=== PATIENT | female | born 1930 | race Caucasian/White ===

== ENCOUNTER 2017-05-30 05:34 | Inpatient (IN) | payer MEDICARE, OTHER ==
[2017-05-30] MEDS ORDERED: SODIUM CHLORIDE 0.9% 1,000 ML IV STA (05:41)
[2017-05-30] MEDS ORDERED: SODIUM CHLORIDE 0.9% 500 ML IV STA (05:41)
[2017-05-30] MEDS ORDERED: LORazepam 2 MG/ML INJ IV STA (05:56)
--- NOTE | 2017-05-30 06:13 | ED ---
General Adult HPI - General Chief complaint: Weakness Stated complaint: Weakness Time Seen by Provider: 05/30/17 05:38 Source: EMS, RN notes reviewed, old records reviewed Mode of arrival: EMS Limitations: no limitations - History of Present Illness Initial comments: This is an 86-year-old female to the ER for evaluation of weakness and lethargy. Patient called EMS the patient's house this patient was not feeling well. Patient has history of high blood pressure diabetes multiple surgeries. Patient is a poor historian at this time, she cannot explain how she feels she states she is just feels like she can't catch her breath and she feels weak. Patient denies pain, denies any other icomplaints - Related Data Home Medications Medication Instructions Recorded Confirmed Alendronate Sodium [Fosamax] 70 mg PO WEEKLY 08/05/15 09/10/15 Atenolol [Tenormin] 25 mg PO DAILY 08/05/15 09/10/15 Calcium/Magnesium/Zinc 1 each PO DAILY 08/05/15 09/10/15 [Rgbykcf-Jenubqyfb-Ownk Tablet] Glucosam/Antelmo-Msm1/C/Kam/Bosw 1 each PO DAILY 08/05/15 09/10/15 [Glucosamine-Chondroitin Tablet] Levothyroxine Sodium [Synthroid] 88 mcg PO DAILY 08/05/15 09/10/15 Losartan [Cozaar] 50 mg PO DAILY 08/05/15 09/10/15 Gilberts-3 Fatty Acids/Fish Oil [Fish 1 each PO DAILY 08/05/15 09/10/15 Oil 1,000 mg Softgel] Simvastatin [Zocor] 20 mg PO HS 08/05/15 09/10/15 Warfarin [Coumadin] 2.5 mg PO MOTUWEFRSA 08/05/15 09/10/15 Warfarin [Coumadin] 5 mg PO SUTH 08/05/15 09/10/15 cloNIDine HCL [Catapres] 0.1 mg PO HS 08/05/15 09/10/15 Allergies Allergy/AdvReac Type Severity Reaction Status Date / Time corn Allergy Unknown Cough Verified 05/30/17 05:43 milk Allergy Unknown Cough Verified 05/30/17 05:43 peanut Allergy Unknown Cough Verified 05/30/17 05:43 soybean Allergy Unknown Cough Verified 05/30/17 05:43 Sulfa (Sulfonamide Allergy Unknown Rash/Hives Verified 05/30/17 05:43 Antibiotics) tomato Allergy Unknown Cough Verified 05/30/17 05:43 wheat Allergy Unknown Cough Verified 05/30/17 05:43 Review of Systems ROS Statement: Those systems with pertinent positive or pertinent negative responses have been documented in the HPI. ROS Other: All systems not noted in ROS Statement are negative. Past Medical History Past Medical History: Deep Vein Thrombosis (DVT), Hypertension, Osteoarthritis ( OA), Pulmonary Embolus (PE), Thyroid Disorder Additional Past Medical History / Comment(s): "PRE-DIABETIC", PACEMAKER, diverticulitis History of Any Multi-Drug Resistant Organisms: None Reported Past Surgical History: Appendectomy, Cholecystectomy, Hysterectomy, Pacemaker, Tonsillectomy Additional Past Surgical History / Comment(s): rt eye cataract Past Anesthesia/Blood Transfusion Reactions: Motion Sickness Type of Cardiac Device: Permanent Pacemaker Device Placement Date:: ?2003 Past Psychological History: No Psychological Hx Reported Smoking Status: Never smoker Past Alcohol Use History: None Reported Past Drug Use History: None Reported - Past Family History Sister(s) Family Medical History: Cancer Mother Family Medical History: Cancer General Exam Limitations: no limitations General appearance: alert, in no apparent distress Head exam: Present: atraumatic, normocephalic, normal inspection Eye exam: Present: normal appearance, PERRL, EOMI. Absent: scleral icterus, conjunctival injection, nystagmus, periorbital swelling ENT exam: Present: normal exam, mucous membranes moist Neck exam: Present: normal inspection. Absent: tenderness, meningismus, lymphadenopathy Respiratory exam: Present: normal lung sounds bilaterally. Absent: respiratory distress, wheezes, rales, rhonchi, stridor Cardiovascular Exam: Present: regular rate, normal rhythm, normal heart sounds. Absent: systolic murmur, diastolic murmur, rubs, gallop, clicks GI/Abdominal exam: Present: soft, normal bowel sounds. Absent: distended, tenderness, guarding, rebound, rigid Extremities exam: Present: normal inspection, full ROM, normal capillary refill. Absent: tenderness, pedal edema, joint swelling, calf tenderness Back exam: Present: normal inspection Neurological exam: Present: alert, oriented X3, CN II-XII intact Psychiatric exam: Present: normal affect, normal mood Skin exam: Present: warm, dry, intact, normal color. Absent: rash Course Vital Signs 05/30/17 05/30/17 05:35 07:18 Temperature 97.8 F Pulse Rate 77 69 Respiratory 18 17 Rate Blood Pressure 193/88 201/86 O2 Sat by Pulse 100 98 Oximetry - Reevaluation(s) Reevaluation #1: 05/30/17 07:41 Patient was stood up to use the commode, unable to stand on her feet, significantly dizzy, room spinning Reevaluation #2: 05/30/17 07:42 Speaking with family states the difficulty with ambulation and dizziness is patient's main problem as well as some occasional confusion EKG Findings - EKG Comments: EKG Findings:: EKG shows normal sinus rhythm rate of 67, pO2 04, QRS 92, QTc 452 Medical Decision Making - Medical Decision Making 86 female to ER for evaluation. Patient is altered mental status, inaccurate historian, very dizzy and unsteady on her feet with ataxia. Patient be admitted for neurological evaluation regarding ataxia, vertigo is possible effects of stroke - Lab Data Result diagrams: 05/30/17 06:27 Lab Results 05/30/17 05/30/17 05/30/17 Range/Units 06:27 06:27 06:27 WBC 3.4 L (3.8-10.6) k/uL RBC 4.41 (3.80-5.40) m/uL Hgb 14.5 (11.4-16.0) gm/dL Hct 43.5 (34.0-46.0) % MCV 98.6 (80.0-100.0) fL MCH 32.9 (25.0-35.0) pg MCHC 33.4 (31.0-37.0) g/dL RDW 12.5 (11.5-15.5) % Plt Count 183 (150-450) k/uL Neutrophils % 57 % Lymphocytes % 30 % Monocytes % 6 % Eosinophils % 3 % Basophils % 1 % Neutrophils # 1.9 (1.3-7.7) k/uL Lymphocytes # 1.0 (1.0-4.8) k/uL Monocytes # 0.2 (0-1.0) k/uL Eosinophils # 0.1 (0-0.7) k/uL Basophils # 0.0 (0-0.2) k/uL PT (9.0-12.0) sec INR (<1.2) APTT (22.0-30.0) sec Plasma Lactic Acid Jignesh 2.4 H* (0.7-2.0) mmol/L Total Creatine Kinase 131 (30-135) U/L CK-MB (CK-2) 0.9 (0.0-2.4) ng/mL CK-MB (CK-2) Rel Index 0.7 Troponin I <0.012 (0.000-0.034) ng/mL 05/30/17 Range/Units 06:27 WBC (3.8-10.6) k/uL RBC (3.80-5.40) m/uL Hgb (11.4-16.0) gm/dL Hct (34.0-46.0) % MCV (80.0-100.0) fL MCH (25.0-35.0) pg MCHC (31.0-37.0) g/dL RDW (11.5-15.5) % Plt Count (150-450) k/uL Neutrophils % % Lymphocytes % % Monocytes % % Eosinophils % % Basophils % % Neutrophils # (1.3-7.7) k/uL Lymphocytes # (1.0-4.8) k/uL Monocytes # (0-1.0) k/uL Eosinophils # (0-0.7) k/uL Basophils # (0-0.2) k/uL PT 20.7 H (9.0-12.0) sec INR 2.3 H (<1.2) APTT 31.4 H (22.0-30.0) sec Plasma Lactic Acid Jignesh (0.7-2.0) mmol/L Total Creatine Kinase (30-135) U/L CK-MB (CK-2) (0.0-2.4) ng/mL CK-MB (CK-2) Rel Index Troponin I (0.000-0.034) ng/mL - Radiology Data Radiology results: report reviewed (CT brain is negative), image reviewed Disposition Clinical Impression: CVA (cerebral vascular accident), Vertigo, Ataxia Disposition: ADMITTED IP TO THIS [facility] Condition: Fair Referrals: Angie Khalil DO [Primary Care Provider] - 1-2 days
[2017-05-30 06:34] LABS: Basophils % (A) 1 %; Eosinophils # (A) 0.1 k/uL (0-0.7); Eosinophils % (A) 3 %; HCT 43.5 % (34.0-46.0); HGB 14.5 gm/dL (11.4-16.0); Lymphocytes % (A) 30 %; MCH 32.9 pg (25.0-35.0); MCHC 33.4 g/dL (31.0-37.0); MCV 98.6 fL (80.0-100.0); Mean Platelet Volume 7.4; Monocytes # (A) 0.2 k/uL (0-1.0); Monocytes % (A) 6 %; Neutrophils # (A) 1.9 k/uL (1.3-7.7); Neutrophils % (A) 57 %; Platelet Count 183 k/uL (150-450); RBC 4.41 m/uL (3.80-5.40); RDW 12.5 % (11.5-15.5); WBC 3.4 k/uL (3.8-10.6)
[2017-05-30 06:49] LABS: INR 2.3 (<1.2); Partial Thromboplastin Time 31.4 sec (22.0-30.0); Prothrombin Time 20.7 sec (9.0-12.0)
[2017-05-30 07:08] LABS: Creatine Kinase 131 U/L (30-135)
[2017-05-30 07:21] LABS: Creatine Kinase MB 0.9 ng/mL (0.0-2.4); Troponin I <0.012 ng/mL (0.000-0.034)
[2017-05-30] MEDS ORDERED: ASPIRIN 325 MG TAB PO STA (07:38)
[2017-05-30] MEDS ORDERED: DIAZEPAM 5 MG/ML 2 ML INJ IVP STA (07:40)
[2017-05-30] MEDS ORDERED: ONDANSETRON 4 MG/2 ML VIAL IVP STA (07:40)
[2017-05-30] MEDS ORDERED: ONDANSETRON 4 MG/2 ML VIAL IVP PRN (07:40)
[2017-05-30 07:50] LABS: Appearance,Urine Clear (Clear); Bilirubin,Urine Negative (Negative); Blood,Urine Negative (Negative); Color,Urine Light Yellow; Glucose,Urine (UA) Negative (Negative); Ketones,Urine Negative (Negative); Leukocyte Esterase,Urine Negative (Negative); Nitrite,Urine Negative (Negative); PH, Urine 7.5 (5.0-8.0); Protein,Urine Negative (Negative); Specific Gravity,Urine 1.005 (1.001-1.035); Urobilinogen,Urine <2.0 mg/dL (<2.0)
[2017-05-30] MEDS ORDERED: LABETALOL 5 MG/ML VIAL MDV IVP STA (07:57)
[2017-05-30 07:59] LABS: ALT 48 U/L (9-52); AST 42 U/L (14-36); Albumin 4.5 g/dL (3.5-5.0); Alkaline Phosphatase 54 U/L (38-126); Anion Gap 13 mmol/L; Blood Urea Nitrogen 10 mg/dL (7-17); Calcium 9.6 mg/dL (8.4-10.2); Carbon Dioxide 22 mmol/L (22-30); Chloride 94 mmol/L (98-107); Glucose 166 mg/dL (74-99); Magnesium 1.7 mg/dL (1.6-2.3); Phosphorus 2.5 mg/dL (2.5-4.5); Potassium 4.5 mmol/L (3.5-5.1); Sodium 129 mmol/L (137-145); Total Bilirubin 1.6 mg/dL (0.2-1.3); Total Protein 7.8 g/dL (6.3-8.2)
--- NOTE | 2017-05-30 08:06 | CT ---
EXAMINATION TYPE: CT brain wo con DATE OF EXAM: 05/30/2017 COMPARISON: NONE HISTORY: generalized weakness CT DLP: 945.5 mGycm Automated exposure control for dose reduction was used. FINDINGS: There is diffuse periventricular white matter lucency, compatible with chronic ischemic change. Central structures are midline. There is no evidence of hydrocephalus. No acute focal lesion, mass ef fect or midline shift is seen. I do not see evidence of intracranial blood. Visualized portions of the paranasal sinuses and mastoids are clear. There is evidence of hyperostosi s frontalis internus. IMPRESSION: 1. NO ACUTE INTRACRANIAL ABNORMALITY. 2. CHRONIC WHITE MATTER ISCHEMIC CHANGE.
--- NOTE | 2017-05-30 09:05 | US ---
EXAMINATION TYPE: US carotid duplex BILAT DATE OF EXAM: 05/30/2017 COMPARISON: NONE CLINICAL HISTORY: Stenosis. Lethargic, weakness, high BP EXAM MEASUREMENTS: RIGHT: Peak Systolic Velocity (PSV) cm/sec ----- Right CCA: 63.6 ----- Right ICA: 56.6 ----- Right ECA: 84.5 ICA/CCA ratio: 0.9 RIGHT: End Diastole cm/sec ----- Right CCA: 10.4 ----- Right ICA: 13.0 ----- Right ECA: 4.3 LEFT: Peak Systolic Velocity (PSV) cm/sec ----- Left CCA: 55.7 ----- Left ICA: 81.2 ----- Left ECA: 56.6 ICA/CCA ratio: 1.5 LEFT: End Diastole cm/sec ----- Left CCA: 9.5 ----- Left ICA: 15.3 ----- Left ECA: 0.0 VERTEBRALS (direction of flow): Right Vertebral: Antegrade Left Vertebral: Antegrade Rhythm: Normal No elevated velocities or significant stenosis. Bilateral wall thickening. Plaque seen in right bulb. IMPRESSION: I DO NOT SEE EVIDENCE OF A HEMODYNAMICALLY SIGNIFICANT STENOSIS IN EITHER CAROTID SYSTEM. Criteria for Assigning % of Stenosis / Diameter reduction (Estimation based on the indirect measurements of the internal carotid artery velocities (ICA PSV). 1. Normal (no stenosis)=ICA PSV < 125 cm/s: ratio < 2.0: ICA EDV<40 cm/s. 2. Less than 50% stenosis=ICA PSV < 125 cm/s: ratio < 2.0: ICA EDV<40 cm/s. 3. 50 to 69% stenosis=ICA PSV of 125 to 230 cm/s: ration 2.0 ? 4.0: ICA EDV 40-100 cm/s. 4. Greater than 70% stenosis to near occlusion= ICA PSV > 230 cm/s: ratio > 4.0: ICA EDV > 100 cm/s. 5. Near occlusion= ICA PSV velocities may be low or undetectable: variable ratio and ICA EDV. 6. Total occlusion=unable to detect flow.
[2017-05-30 12:52] VITALS: RESP 18
[2017-05-30] MEDS ORDERED: DICYCLOMINE 20 MG TAB PO PRN (15:01)
[2017-05-30] MEDS ORDERED: cloNIDine HCL 0.1 MG TAB PO PRN (15:08)
[2017-05-30] MEDS ORDERED: hydrALAZINE HCL 20 MG/ML 1 ML VIAL IVP PRN (15:08)
--- NOTE | 2017-05-30 15:30 | XR ---
EXAMINATION TYPE: XR chest 1V portable DATE OF EXAM: 05/30/2017 CLINICAL HISTORY: Difficulty breathing and CHF. TECHNIQUE: Single AP portable upright view of the chest is obtained. COMPARISON: Chest x-ray from August 11, 2015 FINDINGS: There is no suspicious new focal airspace opacity, pleural effusion, or new pneumothorax s een bilaterally. There is persistent left basilar linear scarring and/or atelectasis. Cardiac silhoue tte size is stable and upper limits of normal with dual lead pacemaker redemonstrated. Osseous struct ures are intact. IMPRESSION: No acute pulmonary process. No significant change from prior.
--- NOTE | 2017-05-30 15:42 | HP ---
HISTORY AND PHYSICAL DATE OF SERVICE: 05/30/2017 CHIEF COMPLAINT: Weakness and as well as dizziness. HISTORY OF PRESENT ILLNESS: This 86-year-old woman with past medical history of multiple medical problems including DVT, hypertension, DJD, history of pulmonary embolism being followed by Dr. Restrepo in the outpatient setting yesterday workup with significant headache of the both temporal areas. Subsequently patient was feeling dizzy. Patient had feeling of vertigo and generalized weakness. The patient came to [facility] and was admitted for further evaluation and treatment. CT scan of the brain was done which showed no active abnormality. Chronic white matter skin changes noted. There is no history of fever, rigors or chills. No history of headache, loss of consciousness or chills. The patient also had difficulty walking also. PAST MEDICAL HISTORY: History of DVT, hypertension, DJD, pulmonary embolism, hypothyroidism, history of pacemaker, diverticulitis. MEDICATIONS: Prior to admission: 1. Catapres 0.1 q.h.s. 2. Coumadin 5 mg Wednesday, Wednesday and 2.5 mg on Wednesday, Wednesday, Wednesday, and Wednesday. 3. Zocor 20 mg q.h.s. 4. Cozaar 50 mg b.i.d. 5. Synthroid 18 mcg p.o. q.h.s. 6. Bentyl 20 mg p.o. t.i.d. p.r.n. 7. Tenormin 25 mg p.o. daily. 8. Fosamax 70 mg p.o. . ALLERGIES: CORN, MILK, PEANUTS, SOY LIVE, SULFA, TOMATO, WHEAT. FAMILY HISTORY: History of cancer in the family. SOCIAL HISTORY: No history of smoking. Occasional alcohol intake. REVIEW OF SYSTEMS: ENT: As mentioned earlier. Cardiovascular: No angina or palpitations. Respiratory: As mentioned earlier. GI no nausea or vomiting. : No dysuria. NERVOUS SYSTEM: As mentioned earlier. Allergy/Immunology: No asthma or hayfever. Musculoskeletal as mentioned earlier. Hematology/Oncology: No history of anemia. Endocrine: As mentioned earlier. Constitutional: As mentioned earlier. Dermatology: Negative. Rheumatology: Negative. Psychiatric: As mentioned earlier. PHYSICAL EXAMINATION: Alert, oriented x3. Blood pressure 160/70, respiratory rate 18, temperature 98.9, pulse ox 98% on 2 L. HEENT: Conjunctivae normal. Oral mucosa moist. Neck is no jugular venous distention. No carotid bruit. No lymph node enlargement. Cardiovascular: S1, S2 muffled. Respiratory: Breath sounds diminished in the bases. No rhonchi and no crackles. ABDOMEN: Soft, obese, nontender. No mass palpable. Legs: No edema and no swelling. NERVOUS SYSTEM: Higher functions as mentioned. Cranial nerves 2nd thru 12 grossly intact. No nystagmus or diplopia. Otherwise some minimal diffuse weakness present otherwise no sensory abnormalities. Mild bilateral incoordination of the hand and as well as the gait dysfunction present, right more than the left. SKIN: No ulcer, rash or bleeding. Lymphatics: No lymph nodes palpable in the neck, axillae or groin. Joints no active deforming arthropathy. LABS: WBC 3.4, INR is 2.3, sodium 139, 2.4 and 2. ASSESSMENT: 1. Dizziness and weakness possibly vertebrobasilar transient ischemic attack or stroke. 2. Gait dysfunction. 3. Hyponatremia. 4. History of deep vein thrombosis. 5. Hypertension. 6. History of degenerative joint disease. 7. History of pulmonary embolism. 8. History of hypothyroidism. 9. History of prediabetes. 10.Cholecystectomy. 11.History of pacemaker. RECOMMENDATIONS AND DISCUSSION: This 86-year-old woman who presented with multiple complex medical issues, we will monitor the patient closely continue the current management and continue symptomatic treatment. Continue repeat and as well as Ecotrin. Neurovascular workup. Neurology consultation. Neuro checks. Also recommend MRI if possible. Otherwise prognosis guarded. hypertension. Discussed with the family at length. Understands and agrees. Further recommendations to follow. Copy of dictation being forwarded to Dr. Restrepo who is the primary physician. MMODL / IJN: [id number] / MTDMatheus
[2017-05-30] MEDS: ATENOLOL 25 MG TAB PO SCH (16:06)
[2017-05-30] MEDS: SODIUM CHLORIDE 0.9% 1,000 ML IV SCH (16:07)
--- NOTE | 2017-05-30 17:06 | P.CNNES ---
History of Present Illness Consult date: 05/30/17 Reason for Consult: Patient with dizziness and ataxia admitted for possible VBI vs. stroke. History of Present Illness: This patient is a 86-year-old right-handed white female with an extensive medical history of multiple medical problems including hypertension, pulmonary embolism, DVT, and possible TIA. Patient apparently was at home and developed symptoms of significant headache mostly involving the bitemporal area. She apparently was feeling very weak after this episode. She tried to get up and ambulate and felt slight symptoms of lightheadedness. She describes this as dizziness. She did not actually experience any true vertigo symptoms but felt lightheaded. She apparently sat down and the symptoms did improve after some time. She complained of generalized weakness at this time but did not have any actual passing out spells. Apparently she was more weak and lethargic and for this reason EMS was called to the home. Her daughter is at bedside and states that she normally gets around and does things on her own independently without difficulty. For this reason she was brought into the emergency room and was seen in the ER at [facility] yesterday by Dr. Villagran. She was sent for a computed tomography scan of the brain for further evaluation. CAT scan revealed no acute intracranial abnormality. Chronic white matter ischemic changes were noted. She was at school he admitted to the hospital. She does have a history of pacemaker placement and is being followed in the cardiology clinic with Dr. Segura. Apparently her current pacemaker is over 7 years old and has not had any recent difficulties with this. She does follow with the tool supervisor yearly. Patient denies any previous history of syncope or seizures. She did have some difficulty with shortness of breath and mild pedal edema but this has been present for some time. Patient states she takes Coumadin on a regular basis. Her INR on admission was 2.3. She is being treated for hypertension as well and takes atenolol at home. The patient states that she was up and ambulating in her room earlier this morning and felt well but did not have any weakness or unsteadiness. She denied any episodes of perioral numbness, dizziness, or diplopia. She has been up and sitting up on the side of the bed and feels better this morning. She did have evidence of mild hyponatremia on admission. She describes her difficulties with walking yesterday as mostly a sense of lightheadedness. She denies any gait ataxia this morning and states she was able to ambulate to the bathroom without any difficulties. The patient's clinical symptoms suggest possibility of vertebrobasilar insufficiency. She was admitted to hospital for a full stroke evaluation. As noted she is currently on Coumadin and her INR today is 2.3. Neurology is now been consulted for further evaluation and recommendations. Review of Systems Constitutional: Denies chills, Denies fever Eyes: denies blurred vision, denies pain Ears, nose, mouth and throat: Denies headache, Denies sore throat Cardiovascular: Denies chest pain, Denies shortness of breath Respiratory: Denies cough Gastrointestinal: Denies abdominal pain, Denies diarrhea, Denies nausea, Denies vomiting Genitourinary: Denies dysuria, Denies hematuria Musculoskeletal: Denies myalgias Integumentary: Denies pruritus, Denies rash Neurological: Reports balance difficulties, Reports headaches, Reports lack of coordination, Denies numbness, Denies weakness Psychiatric: Denies anxiety, Denies depression Endocrine: Denies fatigue, Denies weight change Past Medical History Past Medical History: Deep Vein Thrombosis (DVT), Hypertension, Osteoarthritis ( OA), Pulmonary Embolus (PE), Thyroid Disorder Additional Past Medical History / Comment(s): "PRE-DIABETIC", PACEMAKER, diverticulitis History of Any Multi-Drug Resistant Organisms: None Reported Past Surgical History: Appendectomy, Cholecystectomy, Hysterectomy, Pacemaker, Tonsillectomy Additional Past Surgical History / Comment(s): rt eye cataract Past Anesthesia/Blood Transfusion Reactions: Motion Sickness Type of Cardiac Device: Permanent Pacemaker Device Placement Date:: ?2003 Past Psychological History: No Psychological Hx Reported Smoking Status: Never smoker Past Alcohol Use History: None Reported Past Drug Use History: None Reported - Past Family History Sister(s) Family Medical History: Cancer Mother Family Medical History: Cancer Medications and Allergies Home Medications Medication Instructions Recorded Confirmed Type Alendronate Sodium [Fosamax] 70 mg PO 08/05/15 05/30/17 History Atenolol [Tenormin] 25 mg PO DAILY 08/05/15 05/30/17 History Levothyroxine Sodium [Synthroid] 88 mcg PO 08/05/15 05/30/17 History Losartan [Cozaar] 50 mg PO DAILY 08/05/15 05/30/17 History Simvastatin [Zocor] 20 mg PO HS 08/05/15 05/30/17 History Warfarin [Coumadin] 2.5 mg PO SUTUWETHSA 08/05/15 05/30/17 History Warfarin [Coumadin] 5 mg PO MOFR 08/05/15 05/30/17 History cloNIDine HCL [Catapres] 0.1 mg PO HS 08/05/15 05/30/17 History Dicyclomine [Bentyl] 20 mg PO TID PRN 05/30/17 05/30/17 History Allergies Allergy/AdvReac Type Severity Reaction Status Date / Time corn Allergy Unknown Cough Verified 05/30/17 08:51 milk Allergy Unknown Cough Verified 05/30/17 08:51 peanut Allergy Unknown Cough Verified 05/30/17 08:51 soybean Allergy Unknown Cough Verified 05/30/17 08:51 Sulfa (Sulfonamide Allergy Unknown Rash/Hives Verified 05/30/17 08:51 Antibiotics) tomato Allergy Unknown Cough Verified 05/30/17 08:51 wheat Allergy Unknown Cough Verified 05/30/17 08:51 Physical Examination - Vital Signs Vital Signs: Vital Signs Temp Pulse Pulse Resp BP BP BP 05/30/17 13:52 99.1 F 77 18 210/91 05/30/17 12:38 71 18 165/75 05/30/17 10:39 72 17 167/71 05/30/17 09:39 73 17 154/67 05/30/17 08:39 68 16 154/67 05/30/17 08:20 74 17 202/84 05/30/17 07:18 69 17 201/86 05/30/17 05:35 97.8 F 77 18 193/88 Pulse Ox 05/30/17 13:52 97 05/30/17 12:38 98 05/30/17 10:39 99 05/30/17 09:39 05/30/17 08:39 05/30/17 08:20 95 05/30/17 07:18 98 05/30/17 05:35 100 Intake and Output 05/29/17 05/30/17 05/30/17 22:59 06:59 14:59 Other: Weight 74.616 kg 74.6 kg Patient Weight 05/31/17 06:59 Weight 74.6 kg - Constitutional General appearance: average body habitus, cooperative - EENT EENT: PERRL, mucous membranes moist - Respiratory Respiratory: lungs clear, normal breath sounds - Cardiovascular Cardiovascular: regular rate, normal S1, normal S2 Extremities: no peripheral edema bilaterally - Gastrointestinal Gastrointestinal: normoactive bowel sounds - Integumentary Integumentary: normal - Neurologic Cranial nerve examination: PERRL, EOMI, VFF, V1/V2/V3 grossly intact, face symmetric, tongue midline, intact gag reflex, intact corneal reflex, normal palatal elevation Speech examination: intact Sensorimotor examination: intact Motor examination - right side: 4/5: biceps, triceps, wrist flexion, wrist extension, cashier courtesy booth, hip flexors, knee extensors, dorsiflexion, toe extension (EHL) , plantarflexion Motor examination - left side: 4/5: biceps, triceps, wrist flexion, wrist extension, cashier courtesy booth, hip flexors, knee extensors, dorsiflexion, toe extension (EHL) , plantarflexion Detailed sensory examination: intact Reflex and gait examination: intact Reflexes: 1+: ankle, bicep, knee, tricep - Musculoskeletal Musculoskeletal: no pain - Psychiatric Psychiatric: mood/affect appropriate, cooperative Results - Laboratory Findings CBC and BMP: 05/30/17 06:27 05/30/17 06:27 Abnormal Lab Findings: Abnormal Labs 05/30/17 05/30/17 05/30/17 06:27 06:27 06:27 WBC 3.4 L PT INR APTT Sodium 129 L Chloride 94 L Glucose 166 H Plasma Lactic Acid Jignesh 2.4 H* Total Bilirubin 1.6 H AST 42 H 05/30/17 06:27 WBC PT 20.7 H INR 2.3 H APTT 31.4 H Sodium Chloride Glucose Plasma Lactic Acid Jignesh Total Bilirubin AST Assessment and Plan (1) Vertebrobasilar insufficiency Current Visit: Yes Status: Acute Code(s): G45.0 - VERTEBRO-BASILAR ARTERY SYNDROME SNOMED Code(s): 39122376 (2) Ataxic gait Current Visit: Yes Status: Acute Code(s): R26.0 - ATAXIC GAIT SNOMED Code( s): 27972342 (3) Near syncope Current Visit: Yes Status: Acute Code(s): R55 - SYNCOPE AND COLLAPSE SNOMED Code(s): 986829212 (4) Lightheadedness Current Visit: Yes Status: Acute Code(s): R42 - DIZZINESS AND GIDDINESS SNOMED Code(s): 939528155 Plan: This patient is a 86-year-old right-handed white female admitted to Hospital with symptoms of lightheadedness and weakness. Patient was complaining of dizziness and headache. She was brought into the emergency room where she was evaluated in the ER by Dr. Villagran. She underwent a computed tomography scan of the brain which was negative for any evidence of acute stroke or hemorrhage. There is chronic white matter ischemic changes noted. Patient was admitted to Hospital. Her neurological examination at this time is nonfocal. She does have a history of pacemaker placement as well as DVT in the past and pulmonary embolism. She is on Coumadin for long-term anticoagulation. Her INR in the ER was therapeutic at 2.3. Patient had episode of dizziness and bitemporal headache which has resolved. She complains of symptoms of lightheadedness as her symptoms of dizziness. She denied any true vertigo. She is doing much better this morning and has been up in her room and walking without much symptoms. Her clinical history suggests possibility of vertebrobasilar insufficiency. She is already currently on Coumadin and should maintain her INR between 2-3. We would recommend a repeat computed tomography scan of the brain tomorrow to rule out any acute changes. She is unable to go for MRI of the brain that she has a pacemaker. Carotid Doppler ultrasound was reviewed and is negative for any evidence of carotid artery stenosis. We'll await the repeat computed tomography scan results tomorrow. Would continue monitoring her INR closely. Would increase activity as she tolerates. Overall she seems to be doing much better today. We will continue to follow her progress closely during this admission. Overall prognosis at this time remains guarded. Time with Patient: Greater than 30
[2017-05-30] MEDS: HEPARIN SODIUM,PORCINE 5,000 UNIT/ML 1 ML VIAL SQ SCH (20:30)
[2017-05-30] MEDS ORDERED: ATORVASTATIN 80 MG TAB PO SCH (21:00)
[2017-05-30] MEDS ORDERED: cloNIDine HCL 0.1 MG TAB PO SCH (21:00)
[2017-05-30] MEDS ORDERED: LEVOTHYROXINE 88 MCG TAB PO SCH (21:00)
[2017-05-30] MEDS ORDERED: DOCUSATE 100 MG CAP PO PRN (22:34)
[2017-05-31 06:32] LABS: Basophils % (A) 1 %; Eosinophils # (A) 0.1 k/uL (0-0.7); Eosinophils % (A) 3 %; HCT 37.7 % (34.0-46.0); Lymphocytes # (A) 1.1 k/uL (1.0-4.8); Lymphocytes % (A) 22 %; MCH 31.7 pg (25.0-35.0); MCHC 31.9 g/dL (31.0-37.0); MCV 99.3 fL (80.0-100.0); Mean Platelet Volume 8.2; Monocytes # (A) 0.3 k/uL (0-1.0); Monocytes % (A) 6 %; Neutrophils # (A) 3.2 k/uL (1.3-7.7); Neutrophils % (A) 67 %; Platelet Count 189 k/uL (150-450); RDW 13.4 % (11.5-15.5); WBC 4.8 k/uL (3.8-10.6)
[2017-05-31 06:39] LABS: INR 2.4 (<1.2); Prothrombin Time 21.9 sec (9.0-12.0)
[2017-05-31] MEDS: SODIUM CHLORIDE 0.9% 1,000 ML IV SCH (06:48)
[2017-05-31 06:50] LABS: Anion Gap 7 mmol/L; Blood Urea Nitrogen 9 mg/dL (7-17); Calcium 9.1 mg/dL (8.4-10.2); Carbon Dioxide 28 mmol/L (22-30); Chloride 95 mmol/L (98-107); Cholesterol 113 mg/dL (<200); Glucose 142 mg/dL (74-99); HDL Cholesterol 45 mg/dL (40-60); LDL Cholesterol,Calculated 38 mg/dL (0-99); Potassium 4.8 mmol/L (3.5-5.1); Sodium 130 mmol/L (137-145); Triglycerides 150 mg/dL (<150)
[2017-05-31] MEDS ORDERED: LOSARTAN 50 MG TAB PO SCH (09:00)
[2017-05-31] MEDS ORDERED: ASPIRIN 325 MG TAB PO SCH (09:00)
[2017-05-31] MEDS: ATENOLOL 25 MG TAB PO SCH (09:27)
[2017-05-31] MEDS: HEPARIN SODIUM,PORCINE 5,000 UNIT/ML 1 ML VIAL SQ SCH (09:27)
--- NOTE | 2017-05-31 09:57 | ECHOF ---
Referral Reason:Stroke MEASUREMENTS -------- HEIGHT: 157.5 cm WEIGHT: 77.6 kg BP: 151/71 RVIDd: 2.9 cm (< 3.3) IVSd: 1.3 cm (0.6 - 1.1) LVIDd: 3.5 cm (3.9 - 5.3) LVPWd: 1.3 cm (0.6 - 1.1) IVSs: 1.8 cm LVIDs: 2.3 cm LVPWs: 1.7 cm LA Diam: 3.5 cm (2.7 - 3.8) LAESV Index (A-L): 23.73 ml/m Ao Diam: 3.3 cm (2.0 - 3.7) AV Cusp: 1.1 cm (1.5 - 2.6) MV EXCURSION: 9.111 mm (> 18.000) MV EF SLOPE: 18 mm/s (70 - 150) EPSS: 0.3 cm MV E Eric: 1.04 m/s MV DecT: 398 ms MV A Eric: 1.21 m/s MV E/A Ratio: 0.85 AV maxP.89 mmHg AV meanP.74 mmHg RAP: 5.00 mmHg RVSP: 34.50 mmHg FINDINGS -------- Sinus rhythm. This was a technically good study. The left ventricular size is normal. There is mild concentric left ventricular hypertrophy. Overa ll left ventricular systolic function is normal with, an EF between 60 - 65 %. The right ventricle is normal in size. Normal LA size by volume 22+/-6 ml/m2. The right atrium is normal in size. There is moderate aortic valve sclerosis. There is moderate aortic stenosis present. Peak/mean gr adient across the Aortic Valve is 52.89mmHg / 33.74mmHg. The mitral valve leaflets are mildly thickened. Mild mitral annular calcification present. There is trace mitral regurgitation. Mild tricuspid regurgitation present. There is mild pulmonary hypertension. The right ventricular systolic pressure, as measured by Doppler, is 34.50mmHg. Trace/mild (physiologic) pulmonic regurgitation. The aortic root size is normal. Normal inferior vena cava with normal inspiratory collapse consistent with estimated right atrial pre ssure of 5 mmHg. There is no pericardial effusion. CONCLUSIONS -------- 1. Sinus rhythm. 2. This was a technically good study. 3. The left ventricular size is normal. 4. There is mild concentric left ventricular hypertrophy. 5. Overall left ventricular systolic function is normal with, an EF between 60 - 65 %. 6. The right ventricle is normal in size. 7. Normal LA size by volume 22+/-6 ml/m2. 8. The right atrium is normal in size. 9. There is moderate aortic valve sclerosis. 10. There is moderate aortic stenosis present. 11. Peak/mean gradient across the Aortic Valve is 52.89mmHg / 33.74mmHg. 12. The mitral valve leaflets are mildly thickened. 13. Mild mitral annular calcification present. 14. There is trace mitral regurgitation. 15. Mild tricuspid regurgitation present. 16. There is mild pulmonary hypertension. 17. The right ventricular systolic pressure, as measured by Doppler, is 34.50mmHg. 18. Trace/mild (physiologic) pulmonic regurgitation. 19. The aortic root size is normal. 20. Normal inferior vena cava with normal inspiratory collapse consistent with estimated right atrial pressure of 5 mmHg. 21. There is no pericardial effusion. HOT MAN: Rosa M Briceño RDCS
[2017-05-31 10:57] VITALS: PULSE 74
[2017-05-31 11:56] VITALS: BP 140/77; TEMP 97.3
--- NOTE | 2017-05-31 11:58 | CT ---
EXAMINATION TYPE: CT brain wo con DATE OF EXAM: 05/31/2017 COMPARISON: 05/30/2017 HISTORY: Dizziness with abnormal gait CT DLP: 978.20 mGycm Automated exposure control for dose reduction was used. FINDINGS: Hyperostosis of the calvarium noted. Periventricular low-attenuation is stable compatible with remote microvascular ischemia. If there is concern for acute ischemia correlate with MRI. No midline shift or mass effect. No acute intracranial hemorrhage. IMPRESSION: NO ACUTE INTRACRANIAL HEMORRHAGE. 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 IF THERE IS CONCERN FOR ACUT E ISCHEMIA CORRELATE WITH MRI.
--- NOTE | 2017-06-01 12:26 | DS ---
DISCHARGE SUMMARY DATE OF SERVICE: 05/31/17 FINAL DIAGNOSES: 1. Dizziness and vertigo, possibly acute vertebrobasilar stroke or transient ischemic attack. 2. Gait dysfunction. 3. Hyponatremia. 4. History of deep vein thrombosis. 5. Hypertension. 6. History of degenerative joint disease. 7. History of pulmonary embolism. 8. History of hypothyroidism. 9. History of cholecystectomy. 10.History of pacemaker. DISCHARGE DISPOSITION: The patient will be discharged in stable condition with guarded prognosis. HISTORY OF PRESENT ILLNESS: This 86-year-old woman with past medical history of multiple medical problems, was admitted with dizziness and vertigo, vertebrobasilar stroke was suspected but CT scan did not show any acute abnormality. MRI could not be done because of pacemaker. Neurology saw the patient. Repeat CT scan of brain was also noted. The patient improved significantly. The patient was keen on going home. The patient discharged in stable condition with guarded prognosis. PHYSICAL EXAMINATION: On exam, vital signs stable. CARDIOVASCULAR: S1, S2. Respiratory: Clear to auscultation. Abdomen soft. Nervous system: No focal deficits. DISCHARGE ADVICE AND MEDICATIONS: 1. Diet is cardiac diet. 2. Activity limited until Followup. 3. Follow up with Dr. Mitchell Morrow as advised. 4. Follow up with Dr. Restrepo in 2-3 days. MEDICATIONS: As follows: 1. Fosamax 70 mg as before. 2. Tenormin 25 mg daily. 3. Catapres 0.1 mg q.h.s. 4. Bentyl 10 mg t.i.d. p.r.n. 5. Colace 100 mg daily p.r.n. 6. Synthroid 18 mcg p.o. q.h.s. 7. Cozaar 50 mg. 8. Zocor 20 mg. 9. Coumadin 2.5 mg Wednesday, Wednesday and and 5 mg Wednesday, Wednesday and Wednesday. 10.Ecotrin 81 mg p.o. daily. Please send a copy Dr. Restrepo's office. MMGAMA / JIGAR: [id number] /
[2017-06-03] MEDS ORDERED: NON-FORMULARY DRUG (Alendronate Sodium [Fosamax] 70 MG) PO SCH (12:00)
== END 2017-05-31 15:10 | disposition home or self-care (01) | DRG 65 ==
LOC: EC 05:34 → 6SEL 07:38
PROVIDERS: ADMIT Hospitalist; ATTEND Hospitalist
DX: I63.9 Cerebral infarction, unspecified (principal); G45.9 Transient cerebral ischemic attack, unspecified; E87.1 Hypo-osmolality and hyponatremia; R26.0 Ataxic gait; E03.9 Hypothyroidism, unspecified; I10 Essential (primary) hypertension; M19.90 Unspecified osteoarthritis, unspecified site; R73.03 Prediabetes; K57.90 Diverticulosis of intestine, part unspecified, without perforation or abscess without bleeding; Z79.01 Long term (current) use of anticoagulants; Z79.83 Long term (current) use of bisphosphonates; Z79.899 Other long term (current) drug therapy; Z91.011 Allergy to milk products; Z88.2 Allergy status to sulfonamides; Z91.018 Allergy to other foods; Z95.0 Presence of cardiac pacemaker; Z90.710 Acquired absence of both cervix and uterus; Z90.49 Acquired absence of other specified parts of digestive tract; Z86.718 Personal history of other venous thrombosis and embolism; Z86.711 Personal history of pulmonary embolism
CPT/HCPCS: 36415; 70450; 71045; 80048; 80053; 80061; 81003; 82550; 82553; 83605; 83735; 84100; 84443; 84484; 85025; 85610; 85730; 87086; 93005; 93306; 93880; 96361; 96374; 96375; 99285

== ENCOUNTER → 2017-10-04 | Outpatient (CLI) | payer MEDICARE, OTHER ==
--- NOTE | 2017-10-05 13:07 | BD ---
EXAMINATION TYPE: Axial Bone Density DATE OF EXAM: 10/04/2017 COMPARISON: 2014 CLINICAL HISTORY: osteoporosis. Post menopausal female. Height: 5'06/04 Weight: 173 FRAX RISK QUESTIONS: Secondary Osteoporosis: RISK FACTORS HISTORY OF: Active: n Postmenopausal woman: MEDICATIONS: Thyroid Medications: Which medication: Synthroid How Lon years Additional Medications: blood pressure, cholesterol Additional History: EXAM MEASUREMENTS: Bone mineral densitometry was performed using the [employer] System. Bone mineral density as measured about the Lumbar spine is: ----- L1-L4(G/cm2): 1.115 T Score Values are as follows: ----- L2: -1.1 ----- L3: -1.1 ----- L4: 1.3 ----- L1-L4:-0.5 Bone mineral density has: Decreased -7.6% since study of: 03/27/2015 Bone mineral density about the R hip (g/cm2): 0.852 Bone mineral density about the L hip (g/cm2): 0.863 T Score values are as follows: -----R Neck: -1.3 -----L Neck: -1.3 -----R Total: -0.9 -----L Total: -1.0 Bone mineral density has: Decreased -1.3% since study of: 03/27/2015 IMPRESSION: Osteopenia (T Score between -2.5 and -1). There is slightly increased risk of fracture and the patient may be considered for treatment. Re-Screen 2-5 years. NOTE: T-SCORE=SD OF THE YOUNG ADULT MEAN.
--- NOTE | 2017-10-06 07:26 | MM ---
Reason for exam: screening (asymptomatic). Last mammogram was performed 2 years and 6 months ago. History: Patient is postmenopausal. Took estrogen for 6 years beginning at age 46. Physical Findings: A clinical breast exam by your physician is recommended on an annual basis and results should be correlated with mammographic findings. MG 3D Screening Mammo W/Cad Bilateral CC and MLO view(s) were taken. Prior study comparison: March 27, 2015, bilateral MG 3d screening mammo w/cad. March 09, 2014, bilateral MG diagnostic mammo w CAD JOSR. The breast tissue is heterogeneously dense. This may lower the sensitivity of mammography. Benign calcifications bilaterally. No suspicious abnormality. No significant changes when compared with prior studies. ASSESSMENT: Benign, BI-RAD 2 RECOMMENDATION: Routine screening mammogram of both breasts in 1 year.
== END | disposition home or self-care (01) ==
LOC: RADMAMWWP 14:45
PROVIDERS: ATTEND Family Medicine
DX: Z12.31 Encounter for screening mammogram for malignant neoplasm of breast (principal); M85.80 Other specified disorders of bone density and structure, unspecified site
CPT/HCPCS: 77063; 77067; 77080

== ENCOUNTER 2017-11-08 10:13 | Emergency (ER) | payer MEDICARE, OTHER ==
--- NOTE | 2017-11-08 11:19 | ED ---
General Adult HPI - General Chief complaint: Fall Stated complaint: fall Time Seen by Provider: 11/08/17 11:02 Source: patient, RN notes reviewed Mode of arrival: wheelchair Limitations: no limitations - History of Present Illness Initial comments: Patient 87-year-old female presenting to the emergency room today with a chief complaint of a fall that occurred yesterday. Patient does admit that she missed a step and fell down landing on the left side of the ribs also hit the left side of her forehead. Daughter at bedside states she had a good size hematoma last night to the left side of the forehead. Waking up this morning with increased swelling around the left eye. They have use ice which has helped. Patient states his vision is normal on the left eye. Patient denies any headache. There was no loss of consciousness. Denies any nausea vomiting. Denies any neck or back pain. Patient admits to some pain to the left side of the anterior lateral ribs. She states it's worse when she laughs or with certain movements. She denies any other complaints. Patient does take Coumadin. Had it checked approximately 2 weeks ago. - Related Data Home Medications Medication Instructions Recorded Confirmed Alendronate Sodium [Fosamax] 70 mg PO TH 08/05/15 11/08/17 Atenolol [Tenormin] 25 mg PO BID 08/05/15 11/08/17 Levothyroxine Sodium [Synthroid] 88 mcg PO HS 08/05/15 11/08/17 Losartan [Cozaar] 50 mg PO DAILY 08/05/15 11/08/17 Simvastatin [Zocor] 20 mg PO HS 08/05/15 11/08/17 Warfarin [Coumadin] 2.5 mg PO SUTUTHSA 08/05/15 11/08/17 cloNIDine HCL [Catapres] 0.1 mg PO HS 08/05/15 11/08/17 Dicyclomine [Bentyl] 20 mg PO TID PRN 05/30/17 11/08/17 Acetaminophen Tab [Tylenol Tab] 325 - 650 mg PO Q6H PRN 11/08/17 11/08/17 Cholecalciferol (Vitamin D3) 2,000 unit PO DAILY 11/08/17 11/08/17 [Vitamin D3] Glycerin Adult Suppository 1 supp RECTAL ONCE PRN 11/08/17 11/08/17 Multivitamins, Thera [Multivitamin 1 tab PO DAILY 11/08/17 11/08/17 (formulary)] Warfarin [Coumadin] 5 mg PO MOWEFR 11/08/17 11/08/17 diphenhydrAMINE HCL [Benadryl] 25 mg PO DAILY PRN 11/08/17 11/08/17 Previous Rx's Medication Instructions Recorded Docusate [Colace] 100 mg PO DAILY PRN #30 cap 05/31/17 Aspirin EC [Ecotrin Low Dose] 81 mg PO DAILY #30 tablet. 06/01/17 Allergies Allergy/AdvReac Type Severity Reaction Status Date / Time corn Allergy Unknown Cough Verified 11/08/17 10:43 milk Allergy Unknown Cough Verified 11/08/17 10:43 peanut Allergy Unknown Cough Verified 11/08/17 10:43 soybean Allergy Unknown Cough Verified 11/08/17 10:43 Sulfa (Sulfonamide Allergy Unknown Anaphylaxis Verified 11/08/17 10:43 Antibiotics) tomato Allergy Unknown Cough Verified 11/08/17 10:43 wheat Allergy Unknown Cough Verified 11/08/17 10:43 dextrose Allergy Cough Verified 11/08/17 10:43 Review of Systems ROS Statement: Those systems with pertinent positive or pertinent negative responses have been documented in the HPI. ROS Other: All systems not noted in ROS Statement are negative. Past Medical History Past Medical History: Deep Vein Thrombosis (DVT), Hypertension, Osteoarthritis ( OA), Pulmonary Embolus (PE), Thyroid Disorder Additional Past Medical History / Comment(s): "PRE-DIABETIC", PACEMAKER, diverticulitis History of Any Multi-Drug Resistant Organisms: None Reported Past Surgical History: Appendectomy, Cholecystectomy, Hysterectomy, Pacemaker, Tonsillectomy Additional Past Surgical History / Comment(s): rt eye cataract Past Anesthesia/Blood Transfusion Reactions: Motion Sickness Type of Cardiac Device: Permanent Pacemaker Device Placement Date:: ?2003 Past Psychological History: No Psychological Hx Reported Smoking Status: Never smoker Past Alcohol Use History: None Reported Past Drug Use History: None Reported - Past Family History Sister(s) Family Medical History: Cancer Mother Family Medical History: Cancer General Exam - General Exam Comments Initial Comments: General: The patient is awake and alert, in no distress, and does not appear acutely ill. Eye: Pupils are equal, round and reactive to light, extra-ocular movements are intact. No nystagmus. There is normal conjunctiva bilaterally. No signs of icterus. Tender to palpation over the superior and inferior orbital bones on the left. Ears, nose, mouth and throat: There are moist mucous membranes and no oral lesions. Neck: The neck is supple, there is no tenderness or JVD. Cardiovascular: There is a regular rate and rhythm. No murmur, rub or gallop is appreciated. Respiratory: Lungs are clear to auscultation, respirations are non-labored, breath sounds are equal. No wheezes, stridor, rales, or rhonchi. Gastrointestinal: Soft, non-distended, non-tender abdomen without masses or organomegaly noted. There is no rebound or guarding present. No CVA tenderness. Musculoskeletal: Normal ROM. No tenderness to the cervical, thoracic, lumbar spine. He does have some tenderness to the lateral anterior lateral aspect of the lower left ribs. No step-off or deformity. No bruising. Strength 5/5. Sensation intact. Pulses equal bilaterally 2+. Neurological: A&O x 3. CN II-XII intact, There are no obvious motor or sensory deficits. Coordination appears grossly intact. Speech is normal. Skin: No rash. Skin intact. Patient does have some bruising and some swelling around the left eye and left forehead. Purple in color. Psychiatric: Cooperative, appropriate mood & affect, normal judgment. Limitations: no limitations Course Vital Signs 11/08/17 10:26 Temperature 97.9 F Pulse Rate 66 Respiratory 20 Rate Blood Pressure 159/82 O2 Sat by Pulse 96 Oximetry Medical Decision Making - Medical Decision Making A 7-year-old female presenting to the emergency room for a fall that occurred yesterday. X-ray shows extremely bibasilar atelectasis. No focal patchy density at the left base could represent a mild pulmonary contusion or additional atelectasis. There is no displaced rib fracture seen as read by radiology Dr. Dill. Patient's CT of the head and facial bones shows no acute intracranial hemorrhage or midline shift. There is mild diffuse age-related cerebral atrophy and chronic small vessel ischemia change redemonstrated unchanged from prior exam. There is a new moderate to large size left frontal acute scalp hematoma. 2. No facial bone fracture dislocation. Moderate left periorbital and zygomatic soft tissue injury and or ill-defined hematoma. Discussed with attending physician Dr. Michlee. Patient will be discharged home family at bedside. Advised holding Coumadin at INR 3.6 today. Was holding the next 2 days follow-up the family doctor. Advised return here to the emergency room if any symptoms increase or worsen or for any other concerns. Patient given incentive spirometer. - Lab Data Lab Results 11/08/17 Range/Units 11:23 PT 32.0 H (9.0-12.0) sec INR 3.6 H (<1.2) Disposition Clinical Impression: Fall, Facial contusion, Elevated INR Disposition: HOME SELF-CARE Condition: Good Instructions: Facial Contusion (ED) Additional Instructions: Please use incentive spirometer as discussed. Please hold Coumadin for the next 2 days and have your blood redrawn in 2 days by the family doctor. Please return to emergency room if any symptoms increase worsen or for any other concerns. Is patient prescribed a controlled substance at d/c from ED?: No Referrals: Angie Khalil DO [Primary Care Provider] - 1-2 days Time of Disposition: 12:58
[2017-11-08 11:45] LABS: INR 3.6 (<1.2)
--- NOTE | 2017-11-08 11:59 | CT ---
EXAMINATION TYPE: CT brain wo con, CT facial bones wo con DATE OF EXAM: 11/08/2017 HISTORY: Fall injury with headache and facial pain, left-sided facial swelling CT DLP: 1072.3 (accession [id number]), 429.4 (accession [id number]) mGycm. Automated Exposure Control fo r Dose Reduction was Utilized. TECHNIQUE: CT scan of the head and facial bones are performed without contrast. COMPARISON: CT brain May 31, 2017 FINDINGS: There is no acute intracranial hemorrhage or midline shift identified. There is diffuse v entricular and sulcal prominence consistent with diffuse age-related cerebral atrophy. There is low- attenuation in the periventricular white matter consistent with chronic small vessel ischemic change. There is moderate to large sized new acute left frontal scalp hematoma. Hyperostosis frontalis is se en. The calvarium is intact. Nasal bones are intact. The zygomatic arches are intact bilaterally. Orbital floors and casey are int act. The globes are intact bilaterally. Intraconal fat is preserved bilaterally. The pterygoid plates are intact. Visualized portion of mandible is intact. Temporomandibular joints are maintained bilate rally. There is nonspecific 5 mm sclerotic focus medial aspect of left mandibular condyle. Left front al scalp hematoma and subcutaneous injury left zygoma and lateral preorbital region is present. IMPRESSION: 1. No acute intracranial hemorrhage or midline shift. There is mild diffuse age-related cerebral atr ophy and chronic small vessel ischemic change redemonstrated unchanged from prior. There is new mode rate to large size left frontal acute scalp hematoma. 2. No acute facial bone fracture or dislocation. Moderate left preorbital and zygomatic soft tissue i njury and/or ill-defined hematoma.
--- NOTE | 2017-11-08 12:10 | XR ---
EXAMINATION TYPE: PA chest and left rib series DATE OF EXAM: 11/08/2017 COMPARISON: 05/30/2017 HISTORY: 87-year-old female left-sided rib pain after fall yesterday TECHNIQUE: 5 views FINDINGS: Left anterior chest wall pacemaker generator with right atrial and right ventricular leads. Heart normal size. Atherosclerotic arch calcifications. Strandy bibasilar atelectasis. More focal pat alejandrina left basilar density is noted. No significant pleural effusion or pneumothorax. Evaluation of the left sided ribs shows no displaced left rib fracture. Prominent splenic artery calc ifications and cholecystectomy clips. IMPRESSION: 1. Strandy bibasilar atelectasis. More focal patchy density at the left base could represent mild pul monary contusion or additional atelectasis. 2. No displaced left rib fracture seen.
[2017-11-08 13:05] VITALS: BP 174/81; PULSE 59; RESP 18; TEMP 97.6
== END 2017-11-08 13:24 | disposition home or self-care (01) ==
LOC: EC 10:13
DX: S00.83XA Contusion of other part of head, initial encounter (principal); R79.1 Abnormal coagulation profile; R07.81 Pleurodynia; J98.11 Atelectasis; G31.9 Degenerative disease of nervous system, unspecified; I10 Essential (primary) hypertension; M19.90 Unspecified osteoarthritis, unspecified site; E07.9 Disorder of thyroid, unspecified; Z86.711 Personal history of pulmonary embolism; Z86.718 Personal history of other venous thrombosis and embolism; Z95.0 Presence of cardiac pacemaker; Z79.01 Long term (current) use of anticoagulants; Z79.899 Other long term (current) drug therapy; Z88.2 Allergy status to sulfonamides; Z88.8 Allergy status to other drugs, medicaments and biological substances; Z91.010 Allergy to peanuts; Z91.011 Allergy to milk products; Z91.018 Allergy to other foods; W10.9XXA Fall (on) (from) unspecified stairs and steps, initial encounter; Y92.009 Unspecified place in unspecified non-institutional (private) residence as the place of occurrence of the external cause
CPT/HCPCS: 36415; 70450; 70486; 85610; 99284

== ENCOUNTER 2017-11-26 09:08 | Day surgery (SDC) | payer MEDICARE, OTHER ==
[~2017-11-26 09:08] MED LIST: HEPARIN SODIUM,PORCINE 5,000 UNIT/ML 1 ML VIAL SQ ONE
--- NOTE | 2017-11-26 09:48 | P.GSHP ---
History of Present Illness H&P Date: 11/26/17 Chief Complaint: forehead hematoma This is a 87-year-old female who fell approximately 3 weeks ago. Patient is developed a forehead hematoma. The hematoma was attempted to be aspirated gastric in the office. It immediately refilled after aspiration. Patient presents today for evacuation of hematoma and control of bleeding. Past Medical History Past Medical History: Deep Vein Thrombosis (DVT), Hypertension, Osteoarthritis ( OA), Pulmonary Embolus (PE), Thyroid Disorder Additional Past Medical History / Comment(s): "PRE-DIABETIC", PACEMAKER, diverticulitis History of Any Multi-Drug Resistant Organisms: None Reported Past Surgical History: Appendectomy, Cholecystectomy, Hysterectomy, Pacemaker, Tonsillectomy Additional Past Surgical History / Comment(s): rt eye cataract Past Anesthesia/Blood Transfusion Reactions: Motion Sickness Type of Cardiac Device: Permanent Pacemaker Device Placement Date:: ?2003 Past Psychological History: No Psychological Hx Reported Smoking Status: Never smoker Past Alcohol Use History: None Reported Past Drug Use History: None Reported - Past Family History Sister(s) Family Medical History: Cancer Mother Family Medical History: Cancer Medications and Allergies Home Medications Medication Instructions Recorded Confirmed Type Alendronate Sodium [Fosamax] 70 mg PO TH 08/05/15 11/08/17 History Atenolol [Tenormin] 25 mg PO BID 08/05/15 11/08/17 History Levothyroxine Sodium [Synthroid] 88 mcg PO HS 08/05/15 11/08/17 History Losartan [Cozaar] 50 mg PO DAILY 08/05/15 11/08/17 History Simvastatin [Zocor] 20 mg PO HS 08/05/15 11/08/17 History Warfarin [Coumadin] 2.5 mg PO SUTUTHSA 08/05/15 11/08/17 History cloNIDine HCL [Catapres] 0.1 mg PO HS 08/05/15 11/08/17 History Dicyclomine [Bentyl] 20 mg PO TID PRN 05/30/17 11/08/17 History Docusate [Colace] 100 mg PO DAILY PRN #30 cap 05/31/17 11/08/17 Rx Aspirin EC [Ecotrin Low Dose] 81 mg PO DAILY #30 tablet. 06/01/17 11/08/17 Rx Acetaminophen Tab [Tylenol Tab] 325 - 650 mg PO Q6H PRN 11/08/17 11/08/17 History Cholecalciferol (Vitamin D3) 2,000 unit PO DAILY 11/08/17 11/08/17 History [Vitamin D3] Glycerin Adult Suppository 1 supp RECTAL ONCE PRN 11/08/17 11/08/17 History Multivitamins, Thera [Multivitamin 1 tab PO DAILY 11/08/17 11/08/17 History (formulary)] Warfarin [Coumadin] 5 mg PO MOWEFR 11/08/17 11/08/17 History diphenhydrAMINE HCL [Benadryl] 25 mg PO DAILY PRN 11/08/17 11/08/17 History Allergies Allergy/AdvReac Type Severity Reaction Status Date / Time corn Allergy Unknown Cough Verified 11/08/17 10:43 milk Allergy Unknown Cough Verified 11/08/17 10:43 peanut Allergy Unknown Cough Verified 11/08/17 10:43 soybean Allergy Unknown Cough Verified 11/08/17 10:43 Sulfa (Sulfonamide Allergy Unknown Anaphylaxis Verified 11/08/17 10:43 Antibiotics) tomato Allergy Unknown Cough Verified 11/08/17 10:43 wheat Allergy Unknown Cough Verified 11/08/17 10:43 dextrose Allergy Cough Verified 11/08/17 10:43 Surgical - Exam - General well developed, no distress - Eyes PERRL - ENT 5 cm left forehead hematoma - Neck no masses - Respiratory normal expansion - Cardiovascular Rhythm: regular - Abdomen Abdomen: soft, non tender Assessment and Plan Assessment: Left traumatic for had hematoma. Patient has been on Coumadin. The patient will undergo incision and drainage of 4 had hematoma and control of active bleeding.
[2017-11-26] MEDS ORDERED: ONDANSETRON 4 MG/2 ML VIAL IVP ONE (09:58)
[2017-11-26] MEDS ORDERED: HYDROmorphone 0.5 MG/0.5 ML SYRINGE IVP PRN (09:58)
[2017-11-26] MEDS ORDERED: LIDOCAINE 1% 20 ML VIAL (10MG/ML) FOR IV START INTRADERMA PRN (09:58)
[2017-11-26] MEDS ORDERED: SCOPOLAMINE 1.5MG/72HR PATCH TRANSDERM ONE (09:58)
[2017-11-26] MEDS ORDERED: MIDAZOLAM 2 MG/2 ML VIAL IV PRN (09:58)
[2017-11-26] MEDS ORDERED: LACTATED RINGERS 1,000 ML IV SCH (09:58)
[2017-11-26] MEDS ORDERED: DEXAMETHASONE SOD PHOSPHATE 10 MG/ML 1 ML VIAL IV ONE (09:58)
[2017-11-26 10:07] VITALS: RESP 18; TEMP 97.8
[2017-11-26] MEDS ORDERED: LACTATED RINGERS 1,000 ML IV ONE (10:23)
[2017-11-26 10:26] LABS: Glucose,Whole Blood 160 mg/dL (75-99)
[2017-11-26] MEDS ORDERED: BUPIVACAINE (PF) 0.5% 30 ML VIAL SQ ONE ×2 (12:30→12:56)
[2017-11-26] MEDS ORDERED: MIDAZOLAM 2 MG/2 ML VIAL ONE (12:34)
[2017-11-26] MEDS ORDERED: diphenhydrAMINE 50 MG/ML 1 ML VIAL ONE (12:34)
[2017-11-26] MEDS ORDERED: PROPOFOL 10 MG/ML 20 ML VIAL IV ONE (12:34)
[2017-11-26] MEDS ORDERED: LIDOCAINE 1% INJ 10MG/ML (20 ML MDV) ONE (12:34)
[2017-11-26] MEDS ORDERED: fentaNYL (PF) 50 MCG/ML 2 ML AMP ONE (12:34)
[2017-11-26] MEDS ORDERED: LIDOCAINE 1%-EPI 1:100,000 30 ML VIAL SQ ONE (13:08)
[2017-11-26 13:56] LABS: Glucose,Whole Blood 221 mg/dL (75-99)
[2017-11-26 14:18] VITALS: BP 190/86; PULSE 70
[2017-11-28] MEDS ORDERED: Pre Op ABX Message 1 EACH MISC MISCELLANE ONE (05:00)
--- NOTE | 2018-01-18 09:41 | P.OP ---
Date of Procedure: 11/26/17 Preoperative Diagnosis: left forehead hematoma Postoperative Diagnosis: left forehead hematoma Procedure(s) Performed: incision and drainage of left forehead hematoma with ligation of small bleeding vein Anesthesia: MAC Surgeon: Miguel Guillermo Estimated Blood Loss (ml): 20 Condition: stable Disposition: PACU Description of Procedure: the patient was placed on the operating tableroom in the supine position. She received IV sedation.her left forehead was prepped and draped in the usual sterile fashion. Skin was anesthetized with 1% local Xylocaine. The skin was incised with 15 blade. The hematoma was entered. There was a small bleeding vein at the base of the hematoma. This was ligated with a 3-0 Vicryl suture. The hematoma cavity was irrigated there is no bleeding seen. The skin was closed 4-0 Monocryl suture. Dermabond dressing was applied. Patient procedure well and was sent to recovery room in stable condition.
== END 2017-11-26 14:50 | disposition home or self-care (01) ==
LOC: OR 09:08
PROVIDERS: ATTEND Surgery
DX: S00.83XA Contusion of other part of head, initial encounter (principal); W19.XXXA Unspecified fall, initial encounter; I10 Essential (primary) hypertension; M19.90 Unspecified osteoarthritis, unspecified site; E07.9 Disorder of thyroid, unspecified; R73.03 Prediabetes; Z95.0 Presence of cardiac pacemaker; Z86.711 Personal history of pulmonary embolism; Z86.718 Personal history of other venous thrombosis and embolism; Z79.01 Long term (current) use of anticoagulants; Z79.82 Long term (current) use of aspirin; Z79.890 Hormone replacement therapy; Z79.899 Other long term (current) drug therapy; Z91.011 Allergy to milk products; Z91.010 Allergy to peanuts; Z88.2 Allergy status to sulfonamides; Z91.018 Allergy to other foods
CPT/HCPCS: 88304; 10140; J2250; J1200; J1644; J1100; J2405; J2001; J3010; J2704

== ENCOUNTER 2017-12-01 21:06 | Emergency (ER) | payer MEDICARE, OTHER ==
[2017-12-01 22:07] VITALS: RESP 18
[2017-12-02 00:01] LABS: ALT 38 U/L (9-52); AST 50 U/L (14-36); Albumin 4.5 g/dL (3.5-5.0); Alkaline Phosphatase 54 U/L (38-126); Anion Gap 11 mmol/L; Basophils % (A) 1 %; Calcium 9.4 mg/dL (8.4-10.2); Carbon Dioxide 25 mmol/L (22-30); Chloride 96 mmol/L (98-107); Eosinophils # (A) 0.2 k/uL (0-0.7); Eosinophils % (A) 4 %; Glucose 143 mg/dL (74-99); HCT 35.9 % (34.0-46.0); Lymphocytes # (A) 1.4 k/uL (1.0-4.8); Lymphocytes % (A) 30 %; MCH 33.6 pg (25.0-35.0); MCHC 33.6 g/dL (31.0-37.0); MCV 99.9 fL (80.0-100.0); Macrocytosis Slight; Mean Platelet Volume 7.3; Monocytes # (A) 0.4 k/uL (0-1.0); Monocytes % (A) 8 %; Neutrophils # (A) 2.6 k/uL (1.3-7.7); Neutrophils % (A) 55 %; Platelet Count 223 k/uL (150-450); Potassium 5.3 mmol/L (3.5-5.1); RBC 3.59 m/uL (3.80-5.40); Sodium 132 mmol/L (137-145); Total Bilirubin 1.2 mg/dL (0.2-1.3); Total Protein 7.7 g/dL (6.3-8.2); WBC 4.7 k/uL (3.8-10.6)
[2017-12-02 00:02] LABS: Blood Urea Nitrogen 16 mg/dL (7-17)
[2017-12-02 00:07] LABS: Prothrombin Time 10.1 sec (9.0-12.0)
[2017-12-02 00:09] LABS: Partial Thromboplastin Time 21.5 sec (22.0-30.0)
--- NOTE | 2017-12-02 00:24 | ED ---
General Adult HPI - General Chief complaint: Recheck/Abnormal Lab/Rx Stated complaint: post op infection Time Seen by Provider: 12/01/17 22:23 Source: patient, family Mode of arrival: wheelchair Limitations: no limitations - History of Present Illness Initial comments: 87-year-old female patient presents the emergency department today for evaluation of left-sided facial swelling and increased headache. Patient sustained a head injury on 11/07/2017. Patient had a significant hematoma to the left frontal scalp. She did have to have surgical evacuation of the hematoma that was performed by Dr. Guillermo approximately one week ago. Patient states that today she has had increased swelling to the left side of her face and an increase in pain and pressure to the top of her head. Patient states that the pain in her head radiates down her face and into her jaw. Patient states that this feels similar to when the hematoma was present before. Patient states she has also been having drainage from the incision site. Patient denies any dizziness, weakness, blurred vision, double vision, fever, or chills. She denies any numbness or tingling to her extremities. Patient denies any recent rash, shortness breath, chest pain, abdominal pain, nausea, vomiting, diarrhea, constipation, back pain, numbness, tingling, dizziness, weakness, hematuria, dysuria, urinary urgency, urinary frequency, or any other complaints. - Related Data Home Medications Medication Instructions Recorded Confirmed Alendronate Sodium [Fosamax] 70 mg PO TH 08/05/15 11/26/17 Atenolol [Tenormin] 25 mg PO BID 08/05/15 11/26/17 Levothyroxine Sodium [Synthroid] 88 mcg PO 08/05/15 11/26/17 Losartan [Cozaar] 50 mg PO DAILY 08/05/15 11/26/17 Simvastatin [Zocor] 20 mg PO HS 08/05/15 11/26/17 Warfarin [Coumadin] 2.5 mg PO SUTUTHSA 08/05/15 11/26/17 cloNIDine HCL [Catapres] 0.1 mg PO HS 08/05/15 11/26/17 Dicyclomine [Bentyl] 20 mg PO TID PRN 05/30/17 11/26/17 Acetaminophen Tab [Tylenol Tab] 325 - 650 mg PO Q6H PRN 11/08/17 11/26/17 Cholecalciferol (Vitamin D3) 2,000 unit PO DAILY 11/08/17 11/26/17 [Vitamin D3] Glycerin Adult Suppository 1 supp RECTAL ONCE PRN 11/08/17 11/26/17 Multivitamins, Thera [Multivitamin 1 tab PO DAILY 11/08/17 11/26/17 (formulary)] Warfarin [Coumadin] 5 mg PO MOWEFR 11/08/17 11/26/17 diphenhydrAMINE HCL [Benadryl] 25 mg PO DAILY PRN 11/08/17 11/26/17 Previous Rx's Medication Instructions Recorded Docusate [Colace] 100 mg PO DAILY PRN #30 cap 05/31/17 Aspirin EC [Ecotrin Low Dose] 81 mg PO DAILY #30 tablet. 06/01/17 Cephalexin [Keflex] 500 mg PO Q6H #40 cap 12/02/17 Allergies Allergy/AdvReac Type Severity Reaction Status Date / Time corn Allergy Unknown Cough Verified 12/01/17 21:58 milk Allergy Unknown Cough Verified 12/01/17 21:58 peanut Allergy Unknown Cough Verified 12/01/17 21:58 soybean Allergy Unknown Cough Verified 12/01/17 21:58 Sulfa (Sulfonamide Allergy Unknown Anaphylaxis Verified 12/01/17 21:58 Antibiotics) tomato Allergy Unknown Cough Verified 12/01/17 21:58 wheat Allergy Unknown Cough Verified 12/01/17 21:58 dextrose Allergy Cough Verified 12/01/17 21:58 Review of Systems ROS Statement: Those systems with pertinent positive or pertinent negative responses have been documented in the HPI. ROS Other: All systems not noted in ROS Statement are negative. Past Medical History Past Medical History: Deep Vein Thrombosis (DVT), Hypertension, Osteoarthritis ( OA), Pulmonary Embolus (PE), Thyroid Disorder Additional Past Medical History / Comment(s): "PRE-DIABETIC", PACEMAKER, diverticulitis History of Any Multi-Drug Resistant Organisms: None Reported Past Surgical History: Appendectomy, Cholecystectomy, Hysterectomy, Pacemaker, Tonsillectomy Additional Past Surgical History / Comment(s): rt eye cataract Past Anesthesia/Blood Transfusion Reactions: Motion Sickness Type of Cardiac Device: Permanent Pacemaker Device Placement Date:: ?2003 Past Psychological History: No Psychological Hx Reported Smoking Status: Never smoker Past Alcohol Use History: None Reported Past Drug Use History: None Reported - Past Family History Sister(s) Family Medical History: Cancer Mother Family Medical History: Cancer General Exam Limitations: physical limitation (Hearing impaired) General appearance: alert, in no apparent distress, other (This is a well- developed, well-nourished elderly female patient in no acute distress. Vital signs upon presentation are temperature 98.5F, pulse 78, respirations 18, blood pressure 154/86, pulse ox 95% on room air.) Head exam: Present: other (There is a 6-7 cm incision well approximated with sutures. There is evidence of serosanguineous drainage. There is surrounding swelling and ecchymosis. Patient has swelling extending down the left side of her face and around her eye. There is no erythema. ) Eye exam: Present: normal appearance, PERRL, EOMI, other (There is some periorbital ecchymosis, yellow to brown in color. There is no erythema. No painful EOM.). Absent: scleral icterus, conjunctival injection, nystagmus, periorbital swelling ENT exam: Present: normal exam, normal oropharynx, mucous membranes moist Neck exam: Present: normal inspection, full ROM. Absent: tenderness, meningismus, lymphadenopathy Respiratory exam: Present: normal lung sounds bilaterally. Absent: respiratory distress, wheezes, rales, rhonchi, stridor Cardiovascular Exam: Present: regular rate, normal rhythm, normal heart sounds. Absent: systolic murmur, diastolic murmur, rubs, gallop, clicks GI/Abdominal exam: Present: soft, normal bowel sounds. Absent: distended, tenderness, guarding, rebound, rigid Neurological exam: Present: alert, oriented X3, CN II-XII intact, other ( Strength in all 4 extremities is 5/5.) Psychiatric exam: Present: normal affect, normal mood Skin exam: Present: warm, dry, intact, normal color. Absent: rash Course Vital Signs 12/01/17 12/02/17 21:58 01:17 Temperature 98.5 F 97.6 F Pulse Rate 78 80 Respiratory 18 18 Rate Blood Pressure 154/86 137/83 O2 Sat by Pulse 95 99 Oximetry Medical Decision Making - Medical Decision Making 87 year-old female patient presents the emergency department today for evaluation of increased left-sided head pain and facial swelling. Physical examination did reveal a 6-7 cm incision that is well approximated with sutures. There is no evidence of serosanguineous drainage. Patient had some mild swelling noted to the left-sided face. There is no erythema or evidence of obvious cellulitis or infection. We did perform computed tomography scan of the head, there is no evidence of recurrence the hematoma but did show some soft tissue swelling. Neurologic evaluation is normal. Patient does have Tylenol 3 at home for pain control. We'll start her on Keflex for possibility of beginning incisional infection. She is instructed to follow-up with Dr. Guillermo she has scheduled tomorrow. Return parameters were discussed in detail. She verbalizes understanding and agrees this plan. - Lab Data Result diagrams: 12/01/17 23:35 12/01/17 23:35 Lab Results 12/01/17 12/01/17 12/01/17 Range/Units 23:35 23:35 23:35 WBC 4.7 (3.8-10.6) k/uL RBC 3.59 L (3.80-5.40) m/uL Hgb 12.0 (11.4-16.0) gm/dL Hct 35.9 (34.0-46.0) % MCV 99.9 (80.0-100.0) fL MCH 33.6 (25.0-35.0) pg MCHC 33.6 (31.0-37.0) g/dL RDW 14.0 (11.5-15.5) % Plt Count 223 (150-450) k/uL Neutrophils % 55 % Lymphocytes % 30 % Monocytes % 8 % Eosinophils % 4 % Basophils % 1 % Neutrophils # 2.6 (1.3-7.7) k/uL Lymphocytes # 1.4 (1.0-4.8) k/uL Monocytes # 0.4 (0-1.0) k/uL Eosinophils # 0.2 (0-0.7) k/uL Basophils # 0.0 (0-0.2) k/uL Macrocytosis Slight PT 10.1 (9.0-12.0) sec INR 1.0 (<1.2) APTT 21.5 L (22.0-30.0) sec Sodium 132 L (137-145) mmol/L Potassium 5.3 H (3.5-5.1) mmol/L Chloride 96 L (98-107) mmol/L Carbon Dioxide 25 (22-30) mmol/L Anion Gap 11 mmol/L BUN 16 (7-17) mg/dL Creatinine 0.70 (0.52-1.04) mg/dL Est GFR (CKD-EPI)AfAm >90 (>60 ml/min/1.73 sqM) Est GFR (CKD-EPI)NonAf 79 (>60 ml/min/1.73 sqM) Glucose 143 H (74-99) mg/dL Calcium 9.4 (8.4-10.2) mg/dL Total Bilirubin 1.2 (0.2-1.3) mg/dL AST 50 H (14-36) U/L ALT 38 (9-52) U/L Alkaline Phosphatase 54 (38-126) U/L Total Protein 7.7 (6.3-8.2) g/dL Albumin 4.5 (3.5-5.0) g/dL - Radiology Data Radiology results: report reviewed, image reviewed CT of the brain without contrast was obtained. Report was reviewed in its entirety. Impression by Dr. Jenkins shows negative computed tomography scan of the brain. No change. Left frontal scalp swelling and laceration. This is much smaller than old computed tomography scan. Disposition Clinical Impression: Scalp hematoma Disposition: HOME SELF-CARE Condition: Good Instructions: Hematoma (ED) Additional Instructions: Complete antibiotic prescription as directed. Take Tylenol #3 as directed. Follow-up with Dr. Guillermo tomorrow as you have scheduled. Return here immediately for any new, worsening, or concerning symptoms. Prescriptions: Cephalexin [Keflex] 500 mg PO Q6H #40 cap Is patient prescribed a controlled substance at d/c from ED?: No Referrals: Angie Khalil DO [Primary Care Provider] - 1-2 days Miguel Guillerom MD [STAFF PHYSICIAN] - 1-2 days Time of Disposition: 01:03
--- NOTE | 2017-12-02 00:29 | CT ---
EXAMINATION TYPE: CT brain wo con DATE OF EXAM: 12/02/2017 COMPARISON: 11/08/2017 HISTORY: Prior on synapse. fall 11/08/17 resulting in lg left frontal hematoma. hematoma surgically dr hinojosa 11/26/17, increased swelling and drainage today CT DLP: 961.00 mGycm Automated exposure control for dose reduction was used. FINDINGS: Ventricles have normal size. There is no mass effect nor midline shift. There is no sign of intracran ial hemorrhage. The calvarium is intact. There is left frontal scalp soft tissue swelling and air con sistent with laceration. IMPRESSION: NEGATIVE CT SCAN OF THE BRAIN. NO CHANGE. LEFT FRONTAL SCALP SWELLING AND LACERATION. THIS IS MUCH SMALLER THAN OLD CT SCAN.
[2017-12-02] MEDS ORDERED: CEPHALEXIN 500MG STARTER PACK 4 CAP BTL PO STA (01:01)
[2017-12-02 01:18] VITALS: BP 137/83; PULSE 80; TEMP 97.6
== END 2017-12-02 01:18 | disposition home or self-care (01) ==
LOC: EC 21:06
DX: S00.03XA Contusion of scalp, initial encounter (principal); R22.0 Localized swelling, mass and lump, head; R58 Hemorrhage, not elsewhere classified; H91.90 Unspecified hearing loss, unspecified ear; I10 Essential (primary) hypertension; E07.9 Disorder of thyroid, unspecified; Z79.01 Long term (current) use of anticoagulants; Z79.899 Other long term (current) drug therapy; Z86.711 Personal history of pulmonary embolism; Z86.718 Personal history of other venous thrombosis and embolism; Z88.2 Allergy status to sulfonamides; Z88.8 Allergy status to other drugs, medicaments and biological substances; Z91.010 Allergy to peanuts; Z91.011 Allergy to milk products; Z91.018 Allergy to other foods; Z98.890 Other specified postprocedural states; X58.XXXA Exposure to other specified factors, initial encounter
CPT/HCPCS: 36415; 70450; 80053; 85025; 85610; 85730; 87070; 87205; 99284

== ENCOUNTER 2019-08-01 08:28 | Day surgery (SDC) | payer MEDICARE, OTHER ==
[2019-07-28 15:01] VITALS: BMI 30.2
[~2019-08-01 08:28] MED LIST changes: +ALPRAZolam 0.25 MG TAB PO PRN; +ALPRAZolam 0.5 MG TAB PO PRN; +ASPIRIN 325 MG TAB PO STA; +ATORVASTATIN 80 MG TAB PO STA; -HEPARIN SODIUM,PORCINE 5,000 UNIT/ML 1 ML VIAL SQ ONE; +NITROGLYCERIN SL TABS 0.4 MG TAB SUBLINGUAL PRN; +SODIUM CHLORIDE 0.9% 1,000 ML in EMPTY BAG 1 BAG IV ONE
[2019-08-01 09:12] VITALS: RESP 16; TEMP 97.8
[2019-08-01 09:12] LABS: Glucose,Whole Blood 175 mg/dL (75-99)
[2019-08-01] MEDS ORDERED: SODIUM CHLORIDE 0.9% 1,000 ML IV ONE (09:15)
[2019-08-01] MEDS ORDERED: fentaNYL (PF) 50 MCG/ML 2 ML AMP ONE (09:19)
[2019-08-01] MEDS ORDERED: IV FLUID CONTINUATION 900 ML IV ONE (09:35)
[2019-08-01] MEDS ORDERED: BENZOCAINE SPRAY 1 CAN MUCOUS MEM ONE (09:49)
[2019-08-01] MEDS ORDERED: fentaNYL (PF) 50 MCG/ML 2 ML AMP IV ONE (09:52)
[2019-08-01] MEDS ORDERED: MIDAZOLAM 2 MG/2 ML VIAL IV ONE ×2 (09:53→11:54)
[2019-08-01 09:58] LABS: INR 1.1 (<1.2); Prothrombin Time 11.6 sec (9.0-12.0)
--- NOTE | 2019-08-01 10:47 | ECHOT ---
TRANSESOPHAGEAL ECHOCARDIOGRAM INDICATION: Aortic stenosis. PROCEDURE NOTE: After obtaining informed consent, transesophageal echocardiogram was performed in left lateral position using an Omniplane probe. Local and IV sedation were obtained using Xylocaine spray, 2 mg of Versed and fentanyl. Patient tolerated the procedure well without any obvious immediate complications. FINDINGS: 1. Aortic valve is a 3-leaflet valve that is heavily calcified shows severe restriction in leaflet mobility. By planimetry, the valve area is 0.6 square centimeters. 2. Mitral valve shows calcification with moderate central mitral regurgitation. 3. Tricuspid valve shows mild tricuspid regurgitation. 4. Left atrium appears enlarged. 5. Right atrium and right ventricle seen within normal limits. 6. Left ventricle shows concentric left ventricular hypertrophy with normal LV systolic function. 7. Aorta shows moderate atherosclerotic changes. CONCLUSION: Severe aortic stenosis secondary to heavily calcified 3-leaflet valve with a valve area of 0.6 square centimeters. PLAN: Patient will undergo cardiac catheterization and will be referred for TAVR. MMGAMA / LIN: [id number] /
[2019-08-01] MEDS ORDERED: LIDOCAINE 1% INJ 10MG/ML (20 ML MDV) SQ ONE (11:52)
[2019-08-01] MEDS ORDERED: ENALAPRILAT 1.25 MG/ML 1 ML VIAL IV ONE (11:57)
[2019-08-01] MEDS ORDERED: IOPAMIDOL-370 125ML BTL INJ ONE (12:19)
--- NOTE | 2019-08-01 12:44 | CC ---
CARDIAC CATHETERIZATION REPORT INDICATION: Aortic stenosis. PROCEDURE NOTE: After obtaining informed consent, left heart catheterization and coronary angiogram were performed via the right femoral artery using standard Michelle catheters. Patient tolerated the procedure well without any obvious immediate complication. A femoral angiogram was performed and Angio-Seal was deployed for hemostasis. Patient received moderate conscious sedation. Total sedation time was 29 minutes. 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 I used a Michelle catheter, lizbet catheter and an AL2 catheter. FINDINGS: 1. Hemodynamics central aortic pressure is 170/80 mm. 2. Left ventriculogram is not performed. 3. ANGIOGRAPHIC DATA: LEFT MAIN CORONARY ARTERY: Left main coronary artery appears calcified but is free of significant stenosis. It divides into left anterior descending coronary artery and circumflex coronary artery. LAD appears calcified. Both the LAD shows mild nonobstructive coronary artery disease, as does the circumflex coronary artery. Right coronary artery is a large dominant vessel that has been sub selectively engaged. Does not have significant obstructive coronary artery disease. CONCLUSION: 1. Mild nonobstructive coronary artery disease. 2. Severe aortic stenosis on transesophageal echo. PLAN: Patient will be referred for aortic valve replacement. MMODL / IJN: [id number] /
[2019-08-01 17:28] VITALS: BP 147/57; PULSE 62
== END 2019-08-01 17:24 | disposition home or self-care (01) ==
LOC: CATHCVL 08:28
PROVIDERS: ATTEND Internal Medicine Cardiovascular Disease
DX: I25.10 Atherosclerotic heart disease of native coronary artery without angina pectoris (principal); I08.3 Combined rheumatic disorders of mitral, aortic and tricuspid valves; I48.91 Unspecified atrial fibrillation; I49.5 Sick sinus syndrome; I10 Essential (primary) hypertension; E78.2 Mixed hyperlipidemia; E03.9 Hypothyroidism, unspecified; E11.9 Type 2 diabetes mellitus without complications; Z79.01 Long term (current) use of anticoagulants; Z79.890 Hormone replacement therapy; Z79.82 Long term (current) use of aspirin; Z79.899 Other long term (current) drug therapy; Z88.2 Allergy status to sulfonamides; Z95.0 Presence of cardiac pacemaker
CPT/HCPCS: 93312; 93454; 85610; C1769 ×2; C1760; C1894; J2250; J2001; J3010; Q9967

== ENCOUNTER 2019-08-05 12:57 | Inpatient (IN) | payer MEDICARE, OTHER ==
--- NOTE | 2019-08-05 13:19 | ED ---
General Adult HPI - General Chief complaint: Abdominal Pain Stated complaint: Abd pain Time Seen by Provider: 08/05/19 13:00 Source: patient, EMS, RN notes reviewed, old records reviewed Mode of arrival: EMS Limitations: no limitations - History of Present Illness Initial comments: This is an 88-year-old female who presents to the emergency department c omplaining of left-sided abdominal pain since this morning. She states she's very nauseated but has not vomited. Patient denies any diarrhea. Patient is a very poor historian secondary to the fact she cannot hear anything. Patient denies any fever or chills. Patient denies any chest pain difficulty breathing shortness of breath. Patient denies any dysuria hematuria urinary frequency. - Related Data Home Medications Medication Instructions Recorded Confirmed Atenolol [Tenormin] 50 mg PO DAILY 08/05/15 08/01/19 Levothyroxine Sodium [Synthroid] 88 mcg PO HS 08/05/15 08/01/19 Losartan [Cozaar] 50 mg PO DAILY 08/05/15 08/01/19 Simvastatin [Zocor] 20 mg PO HS 08/05/15 08/01/19 Warfarin [Coumadin] 2.5 mg PO SUMOTUTHFRSA 08/05/15 08/01/19 cloNIDine HCL [Catapres] 0.1 mg PO HS 08/05/15 08/01/19 Dicyclomine [Bentyl] 20 mg PO TID PRN 05/30/17 07/28/19 Cholecalciferol (Vitamin D3) 2,000 unit PO DAILY 11/08/17 08/01/19 [Vitamin D3] Glycerin Adult Suppository 1 supp RECTAL ONCE PRN 11/08/17 07/28/19 Multivitamins, Thera [Multivitamin 1 tab PO DAILY 11/08/17 08/01/19 (formulary)] Warfarin [Coumadin] 5 mg PO WE 11/08/17 07/28/19 Acetaminophen [Tylenol Extra 1 - 2 tab PO DAILY PRN 07/28/19 07/28/19 Strength] Atenolol 25 mg PO HS 07/28/19 08/01/19 Loratadine [Claritin] 10 mg PO DAILY PRN 07/28/19 07/28/19 Ranitidine HCl 150 mg PO BID 07/28/19 08/01/19 Previous Rx's Medication Instructions Recorded Docusate [Colace] 100 mg PO DAILY PRN #30 cap 05/31/17 Aspirin EC [Ecotrin Low Dose] 81 mg PO DAILY #30 tablet. 06/01/17 Allergies Allergy/AdvReac Type Severity Reaction Status Date / Time corn Allergy Unknown Cough Verified 08/01/19 08:41 milk Allergy Unknown Cough Verified 03 08:41 peanut Allergy Unknown Cough Verified 08/01/19 08:41 soybean Allergy Unknown Cough Verified 08/01/19 08:41 Sulfa (Sulfonamide Allergy Unknown Anaphylaxis Verified 08/01/19 08:41 Antibiotics) tomato Allergy Unknown Cough Verified 08/01/19 08:41 wheat Allergy Unknown Cough Verified 08/01/19 08:41 dextrose Allergy Cough Verified 08/01/19 08:41 Review of Systems ROS Statement: Those systems with pertinent positive or pertinent negative responses have been documented in the HPI. ROS Other: All systems not noted in ROS Statement are negative. Past Medical History Past Medical History: Deep Vein Thrombosis (DVT), Hypertension, Osteoarthritis (OA), Pulmonary Embolus (PE), Thyroid Disorder Additional Past Medical History / Comment(s): "PRE-DIABETIC", PACEMAKER, diverticulitis History of Any Multi-Drug Resistant Organisms: None Reported Past Surgical History: Appendectomy, Cholecystectomy, Hysterectomy, Pacemaker, Tonsillectomy Additional Past Surgical History / Comment(s): rt eye cataract Past Anesthesia/Blood Transfusion Reactions: Motion Sickness Type of Cardiac Device: Permanent Pacemaker Device Placement Date:: ?2003 Past Psychological History: No Psychological Hx Reported Smoking Status: Never smoker - Past Family History Sister(s) Family Medical History: Cancer Mother Family Medical History: Cancer General Exam - General Exam Comments Initial Comments: GENERAL: Patient is well-developed and well-nourished. Patient is nontoxic and well- hydrated and is in mild distress. ENT: Neck is soft and supple. No significant lymphadenopathy is noted. Oropharynx is clear. Moist mucous membranes. Neck has full range of motion without eliciting any pain. EYES: The sclera were anicteric and conjunctiva were pink and moist. Extraocular movements were intact and pupils were equal round and reactive to light. Eyelids were unremarkable. PULMONARY: Unlabored respirations. Good breath sounds bilaterally. No audible rales rhonchi or wheezing was noted. CARDIOVASCULAR: There is a regular rate and rhythm without any murmurs gallops or rubs. ABDOMEN: Soft and nontender with normal bowel sounds. Patient has left lower quadrant tenderness SKIN: Skin is clear with no lesions or rashes and otherwise unremarkable. NEUROLOGIC: Patient is alert and oriented x3. Cranial nerves II through XII are grossly intact. Motor and sensory are also intact. Normal speech, volume and content. Symmetrical smile. MUSCULOSKELETAL: Normal extremities with adequate strength and full range of motion. No lower extremity swelling or edema. No calf tenderness. LYMPHATICS: No significant lymphadenopathy is noted PSYCHIATRIC: Normal psychiatric evaluation. Limitations: no limitations Course Vital Signs 08/05/19 12:58 Temperature 97.9 F Pulse Rate 74 Respiratory 17 Rate Blood Pressure 169/72 O2 Sat by Pulse 97 Oximetry Medical Decision Making - Medical Decision Making EKG shows sinus rhythm at 65 bpm SC interval is 220 QRS is 92 QT interval 438 QTC is 455. Patient's EKG shows no ST segment elevation or depression. Computed tomography scan shows mild case of acute diverticulitis with associated ileus. I spoke with Dr. Payan he agreed to admit the patient admitted the patient I wrote admitting orders. I started the patient on Zosyn. I continue Zosyn on the floor. - Lab Data Result diagrams: 08/05/19 13:25 08/05/19 13:25 Lab Results 08/05/19 08/05/19 Range/Units 13:25 13:25 WBC 6.9 (3.8-10.6) k/uL RBC 4.10 (3.80-5.40) m/uL Hgb 13.6 (11.4-16.0) gm/dL Hct 41.3 (34.0-46.0) % MCV 100.7 H (80.0-100.0) fL MCH 33.2 (25.0-35.0) pg MCHC 33.0 (31.0-37.0) g/dL RDW 12.5 (11.5-15.5) % Plt Count 211 (150-450) k/uL Neutrophils % 55 % Lymphocytes % 33 % Monocytes % 7 % Eosinophils % 2 % Basophils % 1 % Neutrophils # 3.8 (1.3-7.7) k/uL Lymphocytes # 2.3 (1.0-4.8) k/uL Monocytes # 0.5 (0-1.0) k/uL Eosinophils # 0.2 (0-0.7) k/uL Basophils # 0.1 (0-0.2) k/uL Sodium 131 L (137-145) mmol/L Potassium 4.7 (3.5-5.1) mmol/L Chloride 95 L (98-107) mmol/L Carbon Dioxide 27 (22-30) mmol/L Anion Gap 9 mmol/L BUN 10 (7-17) mg/dL Creatinine 0.66 (0.52-1.04) mg/dL Est GFR (CKD-EPI)AfAm >90 (>60 ml/min/1.73 sqM) Est GFR (CKD-EPI)NonAf 80 (>60 ml/min/1.73 sqM) Glucose 219 H (74-99) mg/dL Calcium 9.4 (8.4-10.2) mg/dL Total Bilirubin 1.2 (0.2-1.3) mg/dL AST 36 (14-36) U/L ALT 20 (4-34) U/L Alkaline Phosphatase 57 (38-126) U/L Total Protein 7.6 (6.3-8.2) g/dL Albumin 4.4 (3.5-5.0) g/dL Amylase 64 (30-110) U/L Lipase 53 (23-300) U/L Disposition Clinical Impression: Acute diverticulitis Disposition: ADMITTED IP TO THIS HOSP Referrals: Angie Khalil DO [Primary Care Provider] - 1-2 days Time of Disposition: 14:26
[2019-08-05 13:29] LABS: Basophils # (A) 0.1 k/uL (0-0.2); Basophils % (A) 1 %; Eosinophils # (A) 0.2 k/uL (0-0.7); Eosinophils % (A) 2 %; HCT 41.3 % (34.0-46.0); HGB 13.6 gm/dL (11.4-16.0); Lymphocytes # (A) 2.3 k/uL (1.0-4.8); Lymphocytes % (A) 33 %; MCH 33.2 pg (25.0-35.0); MCV 100.7 fL (80.0-100.0); Mean Platelet Volume 8.7; Monocytes # (A) 0.5 k/uL (0-1.0); Monocytes % (A) 7 %; Neutrophils # (A) 3.8 k/uL (1.3-7.7); Neutrophils % (A) 55 %; Platelet Count 211 k/uL (150-450); RDW 12.5 % (11.5-15.5); WBC 6.9 k/uL (3.8-10.6)
[2019-08-05 13:42] LABS: ALT 20 U/L (4-34); AST 36 U/L (14-36); African American GFR (CKD) >90 (>60 ml/min/1.73 sqM); Albumin 4.4 g/dL (3.5-5.0); Alkaline Phosphatase 57 U/L (38-126); Amylase 64 U/L (30-110); Anion Gap 9 mmol/L; Blood Urea Nitrogen 10 mg/dL (7-17); Calcium 9.4 mg/dL (8.4-10.2); Carbon Dioxide 27 mmol/L (22-30); Chloride 95 mmol/L (98-107); Glucose 219 mg/dL (74-99); Non-African American GFR(CKD) 80 (>60 ml/min/1.73 sqM); Potassium 4.7 mmol/L (3.5-5.1); Sodium 131 mmol/L (137-145); Total Bilirubin 1.2 mg/dL (0.2-1.3); Total Protein 7.6 g/dL (6.3-8.2)
--- NOTE | 2019-08-05 14:15 | CT ---
EXAMINATION TYPE: CT abdomen pelvis w con DATE OF EXAM: 08/05/2019 HISTORY: Left lower quadrant pain CT DLP: 896.3mGycm Automated Exposure Control for Dose Reduction was Utilized. CONTRAST: CT scan of the abdomen and pelvis is performed with IV Contrast, patient injected with 100 mL of Isov ue 300. COMPARISON: None. FINDINGS: LUNG BASES: Calcified benign granuloma seen at the right lung base in addition to bibasilar dependent subsegmental atelectasis and vascular prominence. Partially calcified probable granuloma of the righ t middle lobe. Extensive coronary calcifications partially visualized. Small hiatal hernia. LIVER/GB: Cholecystectomy has been performed. Minimal periportal edema is seen. Low-attenuation of th e hepatic parenchyma in comparison to the spleen represents mild degree hepatic steatosis and limits evaluation of hepatic masses. PANCREAS: Pancreatic parenchymal atrophy is present. SPLEEN: Calcified benign granuloma of the spleen. ADRENALS: No significant abnormality is seen. KIDNEYS: There is a large left renal cyst measuring 7.8 cm. No hydronephrosis of either kidney. BOWEL: There are multiple prominent loops of fluid-filled small bowel measuring up to 3.1 cm in the r ight lower quadrant. Distal small bowel loops are decompressed. A smooth transition point without arden ilene is seen in the right low pelvis on image 75. Colonic fecal stasis is seen with air and stool dis tending the distal sigmoid colon up to 8 cm in anterior posterior dimension. Sigmoid colon is redunda nt. There is some fat stranding surrounding the sigmoid colon focally on image 64 and surrounding div erticula. Gastric antral thickening is seen for which direct visualization is recommended. LYMPH NODES: No greater than 1cm abdominal or pelvic lymph nodes are appreciated. OSSEOUS STRUCTURES: There is diffuse osseous demineralization and minimal grade 1 anterolisthesis of L4 on L5. Multilevel Schmorl's nodes are seen. T12 rather than compression deformity is a superior en dplate anterior vertebral body height is maintained. IMPRESSION: 1. Focal mild acute diverticulitis of the sigmoid colon without pneumoperitoneum or pericolonic fluid collection. 2. Multiple loops of small bowel are mildly dilated proximally with decompressed loops of small bowel distally. Smooth transition point in the right lower quadrant is seen. Suspicion is for reactive ile us versus early developing small bowel obstruction. 3. Numerous incidental finding such as hepatic steatosis, mild periportal edema, diffuse gastric antr al thickening, large left renal cysts, and small hiatal hernia.
[2019-08-05] MEDS ORDERED: PIPERACILLIN-TAZOBACTAM 3.375 GM in SODIUM CHLORIDE 0.9% 100 ML IVPB STA (14:20)
[2019-08-05] MEDS ORDERED: SODIUM CHLORIDE 0.9% 1,000 ML IV ONE (14:27)
[2019-08-05] MEDS ORDERED: HYDROmorphone 0.5 MG/0.5 ML SYRINGE IVP PRN (18:11)
[2019-08-05] MEDS ORDERED: HYDROcodone/APAP 5-325MG 1 EACH TAB PO PRN (18:11)
[2019-08-05] MEDS ORDERED: DICYCLOMINE 20 MG TAB PO PRN (20:35)
[2019-08-05] MEDS ORDERED: DOCUSATE 100 MG CAP PO PRN (20:35)
[2019-08-05] MEDS: LEVOTHYROXINE 88 MCG TAB PO SCH (21:08)
[2019-08-05] MEDS: ATORVASTATIN 10 MG TAB PO SCH (21:08)
[2019-08-05] MEDS: ATENOLOL 25 MG TAB PO SCH (21:08)
[2019-08-05] MEDS: FAMOTIDINE 20 MG TAB PO SCH (21:08)
[2019-08-05] MEDS: ACETAMINOPHEN TAB 500 MG TAB PO PRN (21:12)
[2019-08-05] MEDS: cloNIDine HCL 0.1 MG TAB PO SCH (21:34)
[2019-08-05] MEDS: PIPERACILLIN-TAZOBACTAM 3.375 GM in SODIUM CHLORIDE 0.9% 100 ML IVPB SCH (23:15)
--- NOTE | 2019-08-05 23:24 | P.HPIM ---
History of Present Illness H&P Date: 08/05/19 Chief Complaint: abdominal pain Patient is a 88-year-old femalewith a known history of diverticulosis and history of diverticulitis about 4 years ago, recentcardiac catheterization on 08/01/2019due to severe I aortic stenosis and is supposed to followwith recoater in [place], hypertension, history of DVT/PE,hypothyroidism and history of pacemaker placement Came to ER with complaints of abdominal pain mainlyleft lower quadrant since this morning. Patient alsofelt nauseated and vomiting. patient did have diarrhea about 4-5 days ago. denied any complaints of fever or chills. symptoms felt like her previous diverticulitis about 4 years ago. no complaints of chest pain or shortness of breath.. no dysuria or hematuria. CT of the abdominal pelvis showed mild acute diverticulitis of the sigmoid colon without pneumoperitoneum or periColonicfluid collection. Multiple loops of small bowel are mildly dilated. Possible ileus versus early bowel obstruction. Hepatic steatosis. Mild pitting or pedal edema. Diffuse gastric antral thickening. large left renal cyst. Small hiatal hernia. WBC 6.9, sodium 131. patient is a poor historian and is also hard of hearing. Most of the history was taken from her daughterat bedside. Review of Systems Constitutional: Patient denies any fever or chills . No generalized weakness or weight loss. Abdomen: Patient denied nausea vomiting and diarrhea.patient does have left l owerabdominal pain. Cardiovascular: Patient denies any chest pain or short of breath no palpitations . Respiratory: patient denied any cough is from production. No shortness of breath complete review of systems could not be obtained from the patient. Past Medical History Past Medical History: Deep Vein Thrombosis (DVT), Hypertension, Osteoarthritis (OA), Pulmonary Embolus (PE), Thyroid Disorder Additional Past Medical History / Comment(s): "PRE-DIABETIC", PACEMAKER, diverticulitis History of Any Multi-Drug Resistant Organisms: None Reported Past Surgical History: Appendectomy, Cholecystectomy, Hysterectomy, Pacemaker, Tonsillectomy Additional Past Surgical History / Comment(s): rt eye cataract Past Anesthesia/Blood Transfusion Reactions: Motion Sickness Type of Cardiac Device: Permanent Pacemaker Device Placement Date:: ?2003 Past Psychological History: No Psychological Hx Reported Smoking Status: Never smoker Past Alcohol Use History: None Reported Past Drug Use History: None Reported - Past Family History Sister(s) Family Medical History: Cancer Mother Family Medical History: Cancer Medications and Allergies Home Medications Medication Instructions Recorded Confirmed Type Atenolol [Tenormin] 50 mg PO DAILY 08/05/15 08/05/19 History Levothyroxine Sodium [Synthroid] 88 mcg PO HS 08/05/15 08/05/19 History Losartan [Cozaar] 50 mg PO DAILY 08/05/15 08/05/19 History Simvastatin [Zocor] 20 mg PO HS 08/05/15 08/05/19 History cloNIDine HCL [Catapres] 0.1 mg PO HS 08/05/15 08/05/19 History Dicyclomine [Bentyl] 20 mg PO TID PRN 05/30/17 08/05/19 History Docusate [Colace] 100 mg PO DAILY PRN #30 cap 05/31/17 08/05/19 Rx Aspirin EC [Ecotrin Low Dose] 81 mg PO DAILY #30 tablet. 06/01/17 08/05/19 Rx Cholecalciferol (Vitamin D3) 2,000 unit PO DAILY 11/08/17 08/05/19 History [Vitamin D3] Glycerin Adult Suppository 1 supp RECTAL ONCE PRN 11/08/17 08/05/19 History Multivitamins, Thera [Multivitamin 1 tab PO DAILY 11/08/17 08/05/19 History (formulary)] Warfarin [Coumadin] 5 mg PO WE 11/08/17 08/05/19 History Acetaminophen [Tylenol Extra 500 - 1,000 mg PO DAILY PRN 07/28/19 08/05/19 History Strength] Atenolol 25 mg PO HS 07/28/19 08/05/19 History Ranitidine HCl 150 mg PO BID 07/28/19 08/05/19 History Warfarin [Coumadin] 2.5 mg PO SUMOTUTHFRSA 08/05/19 08/05/19 History Allergies Allergy/AdvReac Type Severity Reaction Status Date / Time corn Allergy Unknown Cough Verified 08/05/19 15:01 milk Allergy Unknown Cough Verified 08/05/19 15:01 peanut Allergy Unknown Cough Verified 08/05/19 15:01 soybean Allergy Unknown Cough Verified 08/05/19 15:01 Sulfa (Sulfonamide Allergy Unknown Anaphylaxis Verified 08/05/19 15:01 Antibiotics) tomato Allergy Unknown Cough Verified 08/05/19 15:01 wheat Allergy Unknown Cough Verified 08/05/19 15:01 dextrose Allergy Cough Verified 08/05/19 15:01 Physical Exam Vitals: Vital Signs Temp Pulse Pulse Resp BP BP Pulse Ox 08/05/19 19:38 97.7 F 63 16 148/79 94 L 08/05/19 16:44 97.4 F L 64 16 163/81 98 08/05/19 15:00 97.7 F 65 17 142/68 95 08/05/19 12:58 97.9 F 74 17 169/72 97 Intake and Output 08/05/19 08/05/19 08/06/19 14:59 22:59 06:59 Other: Voiding Method Toilet Weight 79.379 kg 79.379 kg PHYSICAL EXAMINATION: Patient is lying in the bed comfortably, no acute distress, awake alert and oriented.heart of hearing. HEENT: Normocephalic. Neck is supple. Pupils reactive. Nostrils clear. Oral cavity is moist. Ears reveal no drainage. Neck reveals no JVD, carotid bruits, or thyromegaly. CHEST EXAMINATION: Trachea is central. Symmetrical expansion. Lung funes clear to auscultation and percussion. CARDIAC: Normal S1, S2 with no gallops. No murmurs ABDOMEN: Soft.left lower quadrant tenderness. No guarding or rigidity. Bowel sounds presentl. No organomegaly. No abdominal bruits. Extremities: reveal no edema. No clubbing or cyanosis Neurologically awake, alert, oriented x2-3 with well-coordinated movements. No crossfocal deficits noted, hard of hearing. Skin: No rash or skin lesions. Psychiatric: Coperative. Nonsuicidal Musculoskeletal: No joint swelling or deformity. Normal range of motion. Results CBC & Chem 7: 08/05/19 13:25 08/05/19 13:25 Labs: Abnormal Lab Results - Last 24 Hours (Table) 08/05/19 08/05/19 Range/Units 13:25 13:25 MCV 100.7 H (80.0-100.0) fL Sodium 131 L (137-145) mmol/L Chloride 95 L (98-107) mmol/L Glucose 219 H (74-99) mg/dL Thrombosis Risk Factor Assmnt - DVT/VTE Prophylaxis DVT/VTE Prophylaxis: Pharmacologic Prophylaxis ordered - Choose All That Apply Each Factor Represents 1 point: Obesity (BMI >25) Each Risk Factor Represents 3 Points: Age 75 years or older, History of DVT/PE Thrombosis Risk Factor Assessment Total Risk Factor Score: 7 Thrombosis Risk Factor Assessment Level: High Risk Assessment and Plan Assessment: left lower quadrant abdominal pain second acute sigmoid diverticulitis. Ileus with possible early small bowel obstruction. Severe aortic stenosis with a recent history of cardiac cath/BERNARDA and is supposed to follow up with recoater in [place] for TAVR. Pt. follows with . hypertension history of DVT/PE Hypothyroidi Hard of hearing Osteoarthritis of multiple joints history of pacemaker placement. Obesity with BMI 32.0 DVT prophylaxis with heparin subcu plan: Patient will be continued on IV hydration and antibiotics in the form of Zosyn. Currently nothing by mouth. Continue with home medications and follow closely. Gastroenterology was consulted. Further recommendations based on the clinical course. Time with Patient: Greater than 30
[2019-08-06 00:47] LABS: Appearance,Urine Cloudy (Clear); Bacteria,Urine Rare /hpf; Bilirubin,Urine Negative (Negative); Blood,Urine Negative (Negative); Budding Yeast,Urine Occasional /hpf; Color,Urine Yellow; Glucose,Urine (UA) Negative (Negative); Ketones,Urine Negative (Negative); Leukocyte Esterase,Urine Trace (Negative); Mucus,Urine Rare /hpf; Nitrite,Urine Negative (Negative); PH, Urine 7.5 (5.0-8.0); Protein,Urine Trace (Negative); RBC,Urine 19 /hpf (0-5); Specific Gravity,Urine 1.043 (1.001-1.035); Squamous Epithelial Cell,Urine 8 /hpf (0-4); Urobilinogen,Urine <2.0 mg/dL (<2.0); WBC,Urine 7 /hpf (0-5)
[2019-08-06] MEDS: HEPARIN SODIUM,PORCINE 5,000 UNIT/ML 1 ML VIAL SQ SCH ×4 (01:48→23:27)
[2019-08-06] MEDS: ACETAMINOPHEN TAB 500 MG TAB PO PRN (03:52)
[2019-08-06 09:23] LABS: Basophils % (A) 1 %; Eosinophils # (A) 0.2 k/uL (0-0.7); Eosinophils % (A) 3 %; HCT 38.3 % (34.0-46.0); HGB 12.7 gm/dL (11.4-16.0); Lymphocytes # (A) 1.5 k/uL (1.0-4.8); Lymphocytes % (A) 31 %; MCH 33.4 pg (25.0-35.0); MCV 101.2 fL (80.0-100.0); Mean Platelet Volume 8.6; Monocytes # (A) 0.3 k/uL (0-1.0); Monocytes % (A) 6 %; Neutrophils # (A) 2.7 k/uL (1.3-7.7); Neutrophils % (A) 57 %; Platelet Count 179 k/uL (150-450); RBC 3.78 m/uL (3.80-5.40); RDW 12.6 % (11.5-15.5); WBC 4.8 k/uL (3.8-10.6)
[2019-08-06 09:30] LABS: INR 1.4 (<1.2); Prothrombin Time 14.2 sec (9.0-12.0)
[2019-08-06] MEDS: PIPERACILLIN-TAZOBACTAM 3.375 GM in SODIUM CHLORIDE 0.9% 100 ML IVPB SCH ×3 (09:30→23:27)
[2019-08-06 09:31] LABS: ALT 20 U/L (4-34); AST 42 U/L (14-36); African American GFR (CKD) >90 (>60 ml/min/1.73 sqM); Albumin 3.9 g/dL (3.5-5.0); Alkaline Phosphatase 49 U/L (38-126); Anion Gap 8 mmol/L; Blood Urea Nitrogen 8 mg/dL (7-17); Calcium 8.9 mg/dL (8.4-10.2); Carbon Dioxide 25 mmol/L (22-30); Chloride 95 mmol/L (98-107); Glucose 159 mg/dL (74-99); Non-African American GFR(CKD) 79 (>60 ml/min/1.73 sqM); Sodium 128 mmol/L (137-145); Total Bilirubin 1.6 mg/dL (0.2-1.3); Total Protein 6.9 g/dL (6.3-8.2)
[2019-08-06 09:32] LABS: Potassium 4.5 mmol/L (3.5-5.1)
[2019-08-06] MEDS: MULTIVITAMINS, THERA 1 EACH TAB PO SCH (09:33)
[2019-08-06] MEDS: FAMOTIDINE 20 MG TAB PO SCH ×2 (09:33→20:39)
[2019-08-06] MEDS: CHOLECALCIFEROL 1,000 UNIT TAB PO SCH (09:33)
[2019-08-06] MEDS: LOSARTAN 50 MG TAB PO SCH (09:33)
[2019-08-06] MEDS: ATENOLOL 50 MG TAB PO SCH (09:33)
[2019-08-06] MEDS: ASPIRIN 81 MG PO SCH (09:33)
--- NOTE | 2019-08-06 11:48 | CONS ---
CONSULTATION DATE OF SERVICE: 08/06/2019. REQUESTING PHYSICIAN: Dr. Khalil. REASON FOR CONSULTATION: Acute diverticulitis. HISTORY OF PRESENT ILLNESS: The patient is a pleasant 88 -year-old white female with history of profound hearing loss who was admitted to the hospital because of severe left lower quadrant abdominal pain that started about 2 days ago. She progressively worse yesterday and hence came into the emergency room and subsequently was admitted to hospital for further evaluation. She had a CT of the abdomen and pelvis done that showed acute sigmoid diverticulitis. She was started on IV Zosyn, she is feeling better today. Still has some abdominal discomfort, but denies any fever, chills, or night sweats. She reports no change in her bowel habits. Reports no nausea, vomiting. PAST MEDICAL HISTORY: Past medical history is significant for hypertension, hyperlipidemia, hypothyroidism, chronic atrial fibrillation, on Coumadin, history of peptic ulcer disease, deep vein thrombosis and PE in the past, pacemaker implantation. PAST SURGICAL HISTORY: Appendectomy, cholecystectomy, hysterectomy, pacemaker implantation, tonsillectomy. MEDICATIONS: At home include Zocor, Cozaar, Tenormin, Synthroid, Catapres, Coumadin, Bentyl, vitamin D3, multivitamin, Atenolol, Claritin and Ranitidine. ALLERGIES: COW MILK, SOY, SULFA, WHEAT AND DEXTROSE. REVIEW OF SYSTEMS: CARDIOPULMONARY: No chest pain, shortness of breath. GENITOURINARY: No dysuria or hematuria. MUSCULOSKELETAL: Unremarkable. SKIN unremarkable. ENDOCRINE unremarkable. PSYCHIATRIC unremarkable. NEUROLOGY unremarkable. ENT/vision unremarkable. CONSTITUTIONAL: No recent weight loss. No fever, chills, night sweats. FAMILY HISTORY: Sister some kind of cancer. Mother also had some kind of cancer. SOCIAL HISTORY: No smoking. No alcohol use. REVIEW OF SYSTEMS: PHYSICAL EXAMINATION: She appears comfortable in no apparent distress. Vital signs stable. Blood pressure is 98/50, pulse is 69, temperature 98.7. HEENT examination unremarkable. Conjunctivae pink. Sclerae anicteric. Oral cavity no lesions. NECK: No JVD or lymph node enlargement. CHEST: Clear to auscultation. HEART: Regular rate and rhythm. EXTREMITIES: No pedal edema. ABDOMEN: Soft there was tenderness in the left upper quadrant area. No rebound or rigidity. SKIN no rashes. NEUROLOGIC: Alert and oriented x3. No focal deficits. LABS: At the time of admission to the hospital: WBC is 6.9, hemoglobin 13.7, platelets normal. Basic metabolic panel is within normal limits. Today, WBC 4.8, hemoglobin 12.7, platelets normal. INR 1.4. Basic metabolic panel is normal. T-bilirubin 1.4. IMPRESSION: 1. This lady presented to the hospital with lower abdominal pain of [address] scan showed evidence of sigmoid diverticulitis and some dilation of the small bowel loop. The patient is on IV Zosyn, doing much better. Her abdominal pain has significantly improved. Still has some tenderness in the lower quadrant area but no rebound or rigidity. 2. History of deep vein thrombosis and pulmonary embolism on Coumadin. 3. Hypertension. 4. Hyperlipidemia. 5. Hypothyroidism. RECOMMENDATIONS: 1. Continue with broad-spectrum antibiotics. 2. Start on clear liquid diet and advance as tolerated. 3. Repeat labs in the morning. 4. We will follow with you closely. Thank you for this consultation. MMODL / IJN: [id number] /
[2019-08-06] MEDS ORDERED: WARFARIN 5 MG TAB PO SCH (17:30)
[2019-08-06] MEDS ORDERED: WARFARIN 5 MG TAB PO ONE (18:00)
[2019-08-06] MEDS: ATORVASTATIN 10 MG TAB PO SCH (20:39)
[2019-08-06] MEDS: ATENOLOL 25 MG TAB PO SCH (20:39)
[2019-08-06] MEDS: cloNIDine HCL 0.1 MG TAB PO SCH (20:39)
[2019-08-06] MEDS: LEVOTHYROXINE 88 MCG TAB PO SCH (20:39)
--- NOTE | 2019-08-07 00:28 | P.PN ---
Subjective Progress Note Date: 08/06/19 Principal diagnosis: Acute diverticulitis Patient is a 88-year-old femalewith a known history of diverticulosis and history of diverticulitis about 4 years ago, recentcardiac catheterization on 08/01/2019due to severe I aortic stenosis and is supposed to followwith nursing program manager in [place], hypertension, history of DVT/PE,hypothyroidism and history of pacemaker placement Came to ER with complaints of abdominal pain mainlyleft lower quadrant since this morning. Patient alsofelt nauseated and vomiting. patient did have diarrhea about 4-5 days ago. denied any complaints of fever or chills. symptoms felt like her previous diverticulitis about 4 years ago. no complaints of chest pain or shortness of breath.. no dysuria or hematuria. CT of the abdominal pelvis showed mild acute diverticulitis of the sigmoid colon without pneumoperitoneum or periColonicfluid collection. Multiple loops of small bowel are mildly dilated. Possible ileus versus early bowel obstruction. Hepatic steatosis. Mild pitting or pedal edema. Diffuse gastric antral thickening. large left renal cyst. Small hiatal hernia. WBC 6.9, sodium 131. patient is a poor historian and is also hard of hearing. Most of the history was taken from her daughterat bedside. August 06 2019 Patient is currently sitting on the chair comfortably. Right upper quadrant abdominal pain is much improved. Was started on liquid diet. Continue on IV antibiotics in the form of Zosyn. Gastroenterology is following. Patient has been afebrile. Clinically improving. Current medications reviewed. Objective - Vital Signs Vital signs: Vital Signs Temp 98.3 F 08/06/19 11:46 Pulse 66 08/06/19 11:46 Resp 16 08/06/19 11:46 BP 157/82 08/06/19 11:46 Pulse Ox 95 08/06/19 11:46 Intake & Output 08/05/19 08/06/19 08/06/19 18:59 06:59 18:59 Weight 79.379 kg Other: Voiding Method Toilet # Voids 3 1 - Exam PHYSICAL EXAMINATION: Patient is lying in the bed comfortably, no acute distress, awake alert and oriented. Hard of hearing. HEENT: Normocephalic. Neck is supple. Pupils reactive. Nostrils clear. Oral cavity is moist. Ears reveal no drainage. Neck reveals no JVD, carotid bruits, or thyromegaly. CHEST EXAMINATION: Trachea is central. Symmetrical expansion. Lung funes clear to auscultation and percussion. CARDIAC: Normal S1, S2 with no gallops. No murmurs ABDOMEN: Soft. Bowel sounds normal. No organomegaly. No abdominal bruits. Extremities: reveal no edema. No clubbing or cyanosis Neurologically awake, alert, oriented x3 with well-coordinated movements. No focal deficits noted Skin: No rash or skin lesions. Psychiatric: Coperative. Nonsuicidal Musculoskeletal: No joint swelling or deformity. Normal range of motion. - Labs CBC & Chem 7: 08/06/19 09:01 08/06/19 09:01 Labs: Abnormal Lab Results - Last 24 Hours (Table) 08/05/19 08/05/19 08/05/19 Range/Units 00:31 13:25 13:25 RBC (3.80-5.40) m/uL MCV 100.7 H (80.0-100.0) fL PT (9.0-12.0) sec INR (<1.2) Sodium 131 L (137-145) mmol/L Chloride 95 L (98-107) mmol/L Glucose 219 H (74-99) mg/dL Total Bilirubin (0.2-1.3) mg/dL AST (14-36) U/L Urine Appearance Cloudy H (Clear) Ur Specific [place] 1.043 H (1.001-1.035) Urine Protein Trace H (Negative) Ur Leukocyte Esterase Trace H (Negative) Urine RBC 19 H (0-5) /hpf Urine WBC 7 H (0-5) /hpf Ur Squamous Epith Cells 8 H (0-4) /hpf Urine Bacteria Rare H (None) /hpf Urine Mucus Rare H (None) /hpf Urine Yeast (Budding) Occasional H (None) /hpf 08/06/19 08/06/19 08/06/19 Range/Units 09:01 09:01 09:01 RBC 3.78 L (3.80-5.40) m/uL MCV 101.2 H (80.0-100.0) fL PT 14.2 H (9.0-12.0) sec INR 1.4 H (<1.2) Sodium 128 L (137-145) mmol/L Chloride 95 L (98-107) mmol/L Glucose 159 H (74-99) mg/dL Total Bilirubin 1.6 H (0.2-1.3) mg/dL AST 42 H (14-36) U/L Urine Appearance (Clear) Ur Specific [place] (1.001-1.035) Urine Protein (Negative) Ur Leukocyte Esterase (Negative) Urine RBC (0-5) /hpf Urine WBC (0-5) /hpf Ur Squamous Epith Cells (0-4) /hpf Urine Bacteria (None) /hpf Urine Mucus (None) /hpf Urine Yeast (Budding) (None) /hpf Assessment and Plan Assessment: left lower quadrant abdominal pain second acute sigmoid diverticulitis. Ileus with possible early small bowel obstruction. Severe aortic stenosis with a recent history of cardiac cath/BERNARDA and is supposed to follow up with nursing program manager in [place] for TAVR. Pt. follows with . hypertension history of DVT/PE Hypothyroidi Hard of hearing Osteoarthritis of multiple joints history of pacemaker placement. Obesity with BMI 32.0 DVT prophylaxis with heparin subcu plan: Patient will be continued on IV hydration and antibiotics in the form of Zosyn. Liquid diet and advance as tolerated. Gastroenterologyis following, recommendations based on the clinical course. Time with Patient: Greater than 30
[2019-08-07] MEDS ORDERED: HALOPERIDOL LACTATE 5 MG/ML 1 ML VIAL IM ONE (02:37)
[2019-08-07] MEDS: ASPIRIN 81 MG PO SCH (08:32)
[2019-08-07] MEDS: ATENOLOL 50 MG TAB PO SCH (08:32)
[2019-08-07] MEDS: MULTIVITAMINS, THERA 1 EACH TAB PO SCH (08:32)
[2019-08-07] MEDS: HEPARIN SODIUM,PORCINE 5,000 UNIT/ML 1 ML VIAL SQ SCH ×3 (08:32→23:41)
[2019-08-07] MEDS: CHOLECALCIFEROL 1,000 UNIT TAB PO SCH (08:32)
[2019-08-07] MEDS: FAMOTIDINE 20 MG TAB PO SCH (08:32)
[2019-08-07] MEDS: LOSARTAN 50 MG TAB PO SCH (08:32)
[2019-08-07] MEDS: PIPERACILLIN-TAZOBACTAM 3.375 GM in SODIUM CHLORIDE 0.9% 100 ML IVPB SCH ×3 (08:33→23:40)
[2019-08-07 09:03] LABS: INR 1.5 (<1.2)
[2019-08-07 09:12] LABS: Calcium 9.5 mg/dL (8.4-10.2)
[2019-08-07 09:13] LABS: Basophils % (A) 0 %; Eosinophils # (A) 0.1 k/uL (0-0.7); Eosinophils % (A) 1 %; HCT 40.1 % (34.0-46.0); HGB 13.3 gm/dL (11.4-16.0); Lymphocytes # (A) 1.3 k/uL (1.0-4.8); Lymphocytes % (A) 19 %; MCH 33.2 pg (25.0-35.0); MCHC 33.3 g/dL (31.0-37.0); MCV 99.9 fL (80.0-100.0); Mean Platelet Volume 10.1; Monocytes # (A) 0.5 k/uL (0-1.0); Monocytes % (A) 7 %; Neutrophils # (A) 5.1 k/uL (1.3-7.7); Neutrophils % (A) 71 %; Platelet Count 238 k/uL (150-450); RBC 4.02 m/uL (3.80-5.40); RDW 12.5 % (11.5-15.5); WBC 7.2 k/uL (3.8-10.6)
[2019-08-07 09:14] LABS: Potassium 4.5 mmol/L (3.5-5.1)
[2019-08-07] MEDS ORDERED: OLANZapine 2.5 MG TAB PO PRN (10:32)
[2019-08-07] MEDS: cloNIDine HCL 0.1 MG TAB PO PRN (10:33)
[2019-08-07] MEDS: SODIUM CHLORIDE 0.9% 1,000 ML IV SCH (13:04)
--- NOTE | 2019-08-07 16:43 | PN ---
PROGRESS NOTE DATE OF DICTATION: 08/07/2019 This patient is an 88-year-old pleasant white female admitted to the hospital with complaints of abdominal pain for the last 2-3 days' duration. She came to the emergency room and had a CT scan that showed evidence of sigmoid diverticulitis. Presently on IV Zosyn and gradually improving. She states that the pain is significantly improved. Clear liquid, tolerating well, asking for the diet to be advanced more. She denies any fevers, chills, night sweats. PHYSICAL EXAMINATION: She appears comfortable. No apparent distress. Vital signs are stable. Blood pressure 137/86, pulse rate 92 per minute. Afebrile. HEENT examination unremarkable. Conjunctivae pink. Sclerae anicteric. Oral cavity no lesions. NECK: No JVD or lymph node enlargement. CHEST: Clear to auscultation. HEART: Regular rate and rhythm. ABDOMEN: Soft. There was tenderness in the left lower quadrant area. EXTREMITIES: No pedal edema. SKIN: No rashes. NEUROLOGIC: Alert and oriented x3. No focal deficits. LABS: Labs done today show WBC 7.2, hemoglobin 13.3, platelets normal. Basic metabolic panel shows a sodium of 146, potassium 4.5, chloride 90 and CO2 21. IMPRESSION: Acute onset of severe left lower quadrant abdominal pain suggestive of mild diverticulosis, on Zosyn, and symptoms are gradually improving. RECOMMENDATIONS: 1. Advance to a soft diet. 2. Continue with the broad-spectrum antibiotics. 3. Repeat labs in the morning. Will follow with you closely. If her symptoms improve, she can be discharged home tomorrow. Thank you for this consultation. MMODL / IJN: [id number] /
[2019-08-07] MEDS ORDERED: WARFARIN 5 MG TAB PO ONE (18:00)
[2019-08-07 19:04] LABS: African American GFR (CKD) >90 (>60 ml/min/1.73 sqM); Anion Gap 11 mmol/L; Blood Urea Nitrogen 8 mg/dL (7-17); Calcium 9.6 mg/dL (8.4-10.2); Carbon Dioxide 25 mmol/L (22-30); Chloride 90 mmol/L (98-107); Glucose 159 mg/dL (74-99); Non-African American GFR(CKD) 79 (>60 ml/min/1.73 sqM); Sodium 126 mmol/L (137-145)
[2019-08-07] MEDS: ATORVASTATIN 10 MG TAB PO SCH (21:10)
[2019-08-07] MEDS: cloNIDine HCL 0.1 MG TAB PO SCH (21:10)
[2019-08-07] MEDS: LEVOTHYROXINE 88 MCG TAB PO SCH (21:11)
[2019-08-07] MEDS: ATENOLOL 25 MG TAB PO SCH (21:13)
[2019-08-08] MEDS: SODIUM CHLORIDE 0.9% 1,000 ML IV SCH ×2 (04:00→20:25)
[2019-08-08] MEDS: PIPERACILLIN-TAZOBACTAM 3.375 GM in SODIUM CHLORIDE 0.9% 100 ML IVPB SCH ×2 (07:43→17:33)
[2019-08-08] MEDS: MULTIVITAMINS, THERA 1 EACH TAB PO SCH (07:44)
[2019-08-08] MEDS: LOSARTAN 50 MG TAB PO SCH (07:44)
[2019-08-08] MEDS: FAMOTIDINE 20 MG TAB PO SCH (07:44)
[2019-08-08] MEDS: CHOLECALCIFEROL 1,000 UNIT TAB PO SCH (07:44)
[2019-08-08] MEDS: ASPIRIN 81 MG PO SCH (07:44)
[2019-08-08] MEDS: ATENOLOL 50 MG TAB PO SCH (07:44)
[2019-08-08] MEDS: HEPARIN SODIUM,PORCINE 5,000 UNIT/ML 1 ML VIAL SQ SCH ×2 (07:45→17:33)
[2019-08-08 07:59] LABS: Basophils % (A) 1 %; Eosinophils # (A) 0.2 k/uL (0-0.7); Eosinophils % (A) 3 %; HGB 12.5 gm/dL (11.4-16.0); Lymphocytes # (A) 2.1 k/uL (1.0-4.8); Lymphocytes % (A) 32 %; MCH 33.2 pg (25.0-35.0); MCV 100.8 fL (80.0-100.0); Mean Platelet Volume 8.5; Monocytes # (A) 0.4 k/uL (0-1.0); Monocytes % (A) 7 %; Neutrophils # (A) 3.6 k/uL (1.3-7.7); Neutrophils % (A) 56 %; Platelet Count 203 k/uL (150-450); RBC 3.77 m/uL (3.80-5.40); RDW 12.6 % (11.5-15.5); WBC 6.4 k/uL (3.8-10.6)
[2019-08-08 08:01] LABS: INR 1.9 (<1.2); Prothrombin Time 18.8 sec (9.0-12.0)
[2019-08-08 08:05] LABS: Albumin 3.8 g/dL (3.5-5.0); Potassium 4.2 mmol/L (3.5-5.1); Total Bilirubin 1.5 mg/dL (0.2-1.3)
[2019-08-08] MEDS: cloNIDine HCL 0.1 MG TAB PO PRN (11:45)
--- NOTE | 2019-08-08 12:46 | PN ---
PROGRESS NOTE DATE OF DICTATION: 08/08/2019 The patient is an 88-year-old pleasant white female admitted to the hospital with acute sigmoid diverticulitis. She is on broad-spectrum antibiotics. She is gradually improving. She is very hard of hearing, but she states that she is feeling better. PHYSICAL EXAMINATION: On physical examination, appears comfortable, no apparent distress. Vital signs are stable. Blood pressure 165/80, pulse is 56, temperature 98.1. HEENT Examination: Unremarkable. Conjunctivae pink. Sclerae anicteric. Oral cavity, no lesions. NECK: No JVD or lymph node enlargement. CHEST: Clear to auscultation. HEART: Regular rate and rhythm. ABDOMEN: Soft. There was mild tenderness in the left lower quadrant area, left upper quadrant area and mild in the epigastric area. Bowel sounds are positive. No organomegaly. EXTREMITIES: No pedal edema. SKIN: No rashes. NEUROLOGIC: Alert and oriented x3. No focal deficits. LABS: Labs done today: WBC 6.4, hemoglobin 12.5, platelets normal. Basic metabolic panel is within normal limits. INR is 1.9. T bilirubin 1.5. AST and ALT of 53 and 22 respectively. IMPRESSION: 1. Acute sigmoid diverticulitis on Zosyn day #3, gradually improving. 2. Mild hyponatremia. 3. Mild elevation of T-bilirubin and AST, but normal ALT. RECOMMENDATIONS: 1. Continue with antibiotics. 2. Advance to a low-fiber diet. 3. Monitor labs closely. 4. We will follow with you closely. Thank you for this consultation. MMODL / IJN: [id number] /
[2019-08-08] MEDS: LORATADINE 10 MG TAB PO SCH (17:32)
[2019-08-08] MEDS ORDERED: WARFARIN 2.5 MG TAB PO ONE (18:00)
[2019-08-08] MEDS: LEVOTHYROXINE 88 MCG TAB PO SCH (20:22)
[2019-08-08] MEDS: cloNIDine HCL 0.1 MG TAB PO SCH (20:22)
[2019-08-08] MEDS: ATORVASTATIN 10 MG TAB PO SCH (20:22)
[2019-08-08] MEDS: ATENOLOL 25 MG TAB PO SCH (20:24)
[2019-08-09] MEDS: HEPARIN SODIUM,PORCINE 5,000 UNIT/ML 1 ML VIAL SQ SCH ×2 (00:13→08:21)
[2019-08-09] MEDS: PIPERACILLIN-TAZOBACTAM 3.375 GM in SODIUM CHLORIDE 0.9% 100 ML IVPB SCH ×2 (00:13→08:20)
--- NOTE | 2019-08-09 01:23 | P.PN ---
Subjective Progress Note Date: 08/07/19 Principal diagnosis: Acute diverticulitis Patient is a 88-year-old femalewith a known history of diverticulosis and history of diverticulitis about 4 years ago, recentcardiac catheterization on 08/01/2019due to severe I aortic stenosis and is supposed to followwith technical support professional in [place], hypertension, history of DVT/PE,hypothyroidism and history of pacemaker placement Came to ER with complaints of abdominal pain mainlyleft lower quadrant since this morning. Patient alsofelt nauseated and vomiting. patient did have diarrhea about 4-5 days ago. denied any complaints of fever or chills. symptoms felt like her previous diverticulitis about 4 years ago. no complaints of chest pain or shortness of breath.. no dysuria or hematuria. CT of the abdominal pelvis showed mild acute diverticulitis of the sigmoid colon without pneumoperitoneum or periColonicfluid collection. Multiple loops of small bowel are mildly dilated. Possible ileus versus early bowel obstruction. Hepatic steatosis. Mild pitting or pedal edema. Diffuse gastric antral thickening. large left renal cyst. Small hiatal hernia. WBC 6.9, sodium 131. patient is a poor historian and is also hard of hearing. Most of the history was taken from her daughterat bedside. August 06 2019 Patient is currently sitting on the chair comfortably. Right upper quadrant abdominal pain is much improved. Was started on liquid diet. Continue on IV antibiotics in the form of Zosyn. Gastroenterology is following. Patient has been afebrile. Clinically improving. 08/07/2019 Patient is confused and delirious today. Trying to get out of the bed and walking in the hallway. Still having left lower quadrant tenderness but improved compared to yesterday. Sodium level dropped down to 126 today. Patient was started on IV hydration. Serum osmolality slightly low at 269. Was given a dose of Zyprexa 2.5 mg as needed for agitation. Patient has been afebrile. Current medications reviewed. Objective - Vital Signs Vital signs: Vital Signs Temp 97.7 F 08/07/19 20:28 Pulse 60 08/07/19 20:28 Resp 18 08/07/19 20:28 BP 147/86 08/07/19 20:28 Pulse Ox 94 L 08/07/19 20:28 Intake & Output 08/07/19 08/07/19 08/08/19 06:59 18:59 06:59 Intake Total 100 1920 Balance 100 1920 Intake: Intake, IV Titration 100 100 Amount Piperacillin-Tazobactam 3 100 100 .375 gm In Sodium Chloride 0.9% 100 ml @ 25 mls/hr IVPB Q8HR [facility] Rx# :[id number] Oral 1820 Other: Voiding Method Toilet Toilet # Voids 2 3 - Exam PHYSICAL EXAMINATION: Patient is lying in the bed comfortably, no acute distress, awake alert and oriented. Hard of hearing. HEENT: Normocephalic. Neck is supple. Pupils reactive. Nostrils clear. Oral cavity is moist. Ears reveal no drainage. Neck reveals no JVD, carotid bruits, or thyromegaly. CHEST EXAMINATION: Trachea is central. Symmetrical expansion. Lung funes clear to auscultation and percussion. CARDIAC: Normal S1, S2 with no gallops. No murmurs ABDOMEN: Soft. Bowel sounds normal. No organomegaly. No abdominal bruits. Extremities: reveal no edema. No clubbing or cyanosis Neurologically awake, alert, oriented x1, delirious. with well-coordinated movements. No focal deficits noted Skin: No rash or skin lesions. Psychiatric: Coperative. Nonsuicidal Musculoskeletal: No joint swelling or deformity. Normal range of motion. - Labs CBC & Chem 7: 08/08/19 07:36 08/08/19 07:36 Labs: Abnormal Lab Results - Last 24 Hours (Table) 08/07/19 08/07/19 08/07/19 Range/Units 08:30 08:30 08:30 PT 15.0 H (9.0-12.0) sec INR 1.5 H (<1.2) Sodium 126 L (137-145) mmol/L Chloride 90 L (98-107) mmol/L Carbon Dioxide 21 L (22-30) mmol/L Glucose 220 H (74-99) mg/dL Osmolality 269 L (280-301) mosm/kg 08/07/19 Range/Units 18:00 PT (9.0-12.0) sec INR (<1.2) Sodium 126 L (137-145) mmol/L Chloride 90 L (98-107) mmol/L Carbon Dioxide (22-30) mmol/L Glucose 159 H (74-99) mg/dL Osmolality (280-301) mosm/kg Microbiology - Last 24 Hours (Table) 08/05/19 15:12 Blood Culture - Preliminary Blood No Growth after 48 hours Assessment and Plan Assessment: left lower quadrant abdominal pain second acute sigmoid diverticulitis. Ileus with possible early small bowel obstruction. Acute delirium likely due to infection. Severe aortic stenosis with a recent history of cardiac cath/BERNARDA and is supposed to follow up with technical support professional in [place] for TAVR. Pt. follows with . hypertension history of DVT/PE Hypothyroidi Hard of hearing Osteoarthritis of multiple joints history of pacemaker placement. Obesity with BMI 32.0 DVT prophylaxis with heparin subcu plan: Patient will be continued on IV hydration and antibiotics in the form of Zosyn. Liquid diet and advance as tolerated. Gastroenterologyis following, recommendations based on the clinical course. Time with Patient: Greater than 30
--- NOTE | 2019-08-09 01:25 | P.PN ---
Subjective Progress Note Date: 08/08/19 Principal diagnosis: Acute diverticulitis Patient is a 88-year-old femalewith a known history of diverticulosis and history of diverticulitis about 4 years ago, recentcardiac catheterization on 08/01/2019due to severe I aortic stenosis and is supposed to followwith director visual in [place], hypertension, history of DVT/PE,hypothyroidism and history of pacemaker placement Came to ER with complaints of abdominal pain mainlyleft lower quadrant since this morning. Patient alsofelt nauseated and vomiting. patient did have diarrhea about 4-5 days ago. denied any complaints of fever or chills. symptoms felt like her previous diverticulitis about 4 years ago. no complaints of chest pain or shortness of breath.. no dysuria or hematuria. CT of the abdominal pelvis showed mild acute diverticulitis of the sigmoid colon without pneumoperitoneum or periColonicfluid collection. Multiple loops of small bowel are mildly dilated. Possible ileus versus early bowel obstruction. Hepatic steatosis. Mild pitting or pedal edema. Diffuse gastric antral thickening. large left renal cyst. Small hiatal hernia. WBC 6.9, sodium 131. patient is a poor historian and is also hard of hearing. Most of the history was taken from her daughterat bedside. August 06 2019 Patient is currently sitting on the chair comfortably. Right upper quadrant abdominal pain is much improved. Was started on liquid diet. Continue on IV antibiotics in the form of Zosyn. Gastroenterology is following. Patient has been afebrile. Clinically improving. 08/07/2019 Patient is confused and delirious today. Trying to get out of the bed and walking in the hallway. Still having left lower quadrant tenderness but improved compared to yesterday. Sodium level dropped down to 126 today. Patient was started on IV hydration. Serum osmolality slightly low at 269. Was given a dose of Zyprexa 2.5 mg as needed for agitation. Patient has been afebrile. 08/08/2019 Patient is currently lying in the bed comfortably. Does have tenderness over the left lower quadrant but improved compared to yesterday. Sodium level improved to 129 with IV hydration. Patient is more sleepy today. Currently be ing continued on antibiotics in the form of Zosyn. We will follow up sodium level tomorrow and anticipate discharge once the mentation status improves. Able to tolerate oral diet but very minimal amount. No fever no chills. No chest pain or shortness breath. No episodes of vomiting. Current medications reviewed. Objective - Vital Signs Vital signs: Vital Signs Temp 98.6 F 08/08/19 20:28 Pulse 66 08/08/19 20:28 Resp 16 08/08/19 20:28 BP 149/78 08/08/19 20:28 Pulse Ox 94 L 08/08/19 20:28 Intake & Output 08/08/19 08/08/19 08/09/19 06:59 18:59 06:59 Intake Total 720 1340 200 Balance 720 1340 200 Intake: Intake, IV Titration 600 740 200 Amount Piperacillin-Tazobactam 3 150 100 50 .375 gm In Sodium Chloride 0.9% 100 ml @ 25 mls/hr IVPB Q8HR JULIO Rx# :[id number] Sodium Chloride 0.9% 1, 450 640 150 000 ml @ 75 mls/hr IV . [id number] JULIO Rx#:[id number] Oral 120 600 Other: Voiding Method Toilet Toilet Toilet # Voids 1 3 1 # Bowel Movements 1 - Exam PHYSICAL EXAMINATION: Patient is lying in the bed comfortably, no acute distress, awake alert and oriented. Hard of hearing. HEENT: Normocephalic. Neck is supple. Pupils reactive. Nostrils clear. Oral cavity is moist. Ears reveal no drainage. Neck reveals no JVD, carotid bruits, or thyromegaly. CHEST EXAMINATION: Trachea is central. Symmetrical expansion. Lung funes clear to auscultation and percussion. CARDIAC: Normal S1, S2 with no gallops. No murmurs ABDOMEN: Soft. Mild left lower quadrant tenderness. Bowel sounds normal. No organomegaly. No abdominal bruits. Extremities: reveal no edema. No clubbing or cyanosis Neurologically awake, alert, oriented x1, delirious. with well-coordinated mov ements. No focal deficits noted Skin: No rash or skin lesions. Psychiatric: Coperative. Nonsuicidal Musculoskeletal: No joint swelling or deformity. Normal range of motion. - Labs CBC & Chem 7: 08/08/19 07:36 08/08/19 07:36 Labs: Abnormal Lab Results - Last 24 Hours (Table) 08/08/19 08/08/19 08/08/19 Range/Units 07:36 07:36 07:36 RBC 3.77 L (3.80-5.40) m/uL MCV 100.8 H (80.0-100.0) fL PT 18.8 H (9.0-12.0) sec INR 1.9 H (<1.2) Sodium 129 L (137-145) mmol/L Chloride 97 L (98-107) mmol/L Glucose 146 H (74-99) mg/dL Total Bilirubin 1.5 H (0.2-1.3) mg/dL AST 53 H (14-36) U/L Microbiology - Last 24 Hours (Table) 08/05/19 15:12 Blood Culture - Preliminary Blood No Growth after 72 hours Assessment and Plan Assessment: left lower quadrant abdominal pain second acute sigmoid diverticulitis. Ileus with possible early small bowel obstruction. Acute delirium likely due to infection. Severe aortic stenosis with a recent history of cardiac cath/BERNARDA and is supposed to follow up with director visual in [place] for TAVR. Pt. follows with . hypertension history of DVT/PE Hypothyroidi Hard of hearing Osteoarthritis of multiple joints history of pacemaker placement. Obesity with BMI 32.0 DVT prophylaxis with heparin subcu plan: Patient will be continued on IV hydration and antibiotics in the form of Zosyn. Liquid diet and advance as tolerated. Gastroenterologyis following, recommendations based on the clinical course. Time with Patient: Greater than 30
[2019-08-09 03:45] LABS: Creatinine,Urine Random 26.4 mg/dL; Protein/Creatinine Ratio,Urine 0.455
[2019-08-09] MEDS: SODIUM CHLORIDE 0.9% 1,000 ML IV SCH (06:01)
[2019-08-09 08:05] LABS: INR 2.6 (<1.2); Prothrombin Time 25.1 sec (9.0-12.0)
[2019-08-09 08:06] LABS: Basophils % (A) 1 %; Eosinophils # (A) 0.2 k/uL (0-0.7); Eosinophils % (A) 3 %; HCT 36.9 % (34.0-46.0); HGB 12.2 gm/dL (11.4-16.0); Lymphocytes # (A) 1.7 k/uL (1.0-4.8); Lymphocytes % (A) 31 %; MCH 32.7 pg (25.0-35.0); MCV 99.1 fL (80.0-100.0); Mean Platelet Volume 8.5; Monocytes # (A) 0.4 k/uL (0-1.0); Monocytes % (A) 8 %; Neutrophils # (A) 2.9 k/uL (1.3-7.7); Neutrophils % (A) 55 %; Platelet Count 183 k/uL (150-450); RBC 3.72 m/uL (3.80-5.40); RDW 12.6 % (11.5-15.5); WBC 5.4 k/uL (3.8-10.6)
[2019-08-09 08:11] LABS: Calcium 8.7 mg/dL (8.4-10.2)
[2019-08-09] MEDS: ASPIRIN 81 MG PO SCH (08:22)
[2019-08-09] MEDS: CHOLECALCIFEROL 1,000 UNIT TAB PO SCH (08:23)
[2019-08-09] MEDS: ATENOLOL 50 MG TAB PO SCH (08:23)
[2019-08-09] MEDS: MULTIVITAMINS, THERA 1 EACH TAB PO SCH (08:23)
[2019-08-09] MEDS: FAMOTIDINE 20 MG TAB PO SCH (08:23)
[2019-08-09] MEDS: LORATADINE 10 MG TAB PO SCH (08:23)
[2019-08-09] MEDS: LOSARTAN 50 MG TAB PO SCH (08:23)
[2019-08-09] MEDS: cloNIDine HCL 0.1 MG TAB PO PRN (11:34)
[2019-08-09 11:58] VITALS: PULSE 60; RESP 17; TEMP 98.2
[2019-08-09 12:53] VITALS: BP 121/70
--- NOTE | 2019-08-09 13:02 | PN ---
PROGRESS NOTE DATE OF SERVICE: 08/09/2019 Patient is an 88-year-old pleasant white female admitted to the hospital with acute sigmoid diverticulitis on IV Zosyn, day #4, doing better. She still has some abdominal pain but overall feels better. She still remains confused. No nausea, vomiting. Had one bowel movement last night. PHYSICAL EXAMINATION: Blood pressure is 201/98, pulse is 60, temperature 98.2. HEENT: Examination unremarkable, conjunctivae are pink, sclerae non icterus, oral cavity no lesions. NECK: No JVD or lymph node enlargement. CHEST: Clear to auscultation. HEART: Regular rate and rhythm. ABDOMEN: Soft. Bowel sounds are positive. No organomegaly. There was minimal tenderness in the left lower quadrant area. EXTREMITIES: No pedal edema. SKIN: No rashes. NEUROLOGIC: Alert and oriented x3. No focal deficits. LABS: From today WBC 5.4, hemoglobin 12.2, platelets normal. INR is 2.6. Basic metabolic panel is within normal limits. IMPRESSION: 1. Acute sigmoid diverticulitis on Zosyn, doing much better. Symptoms have significantly improved. 2. Uncontrolled hypertension. 3. Atrial fibrillation on Coumadin. RECOMMENDATIONS: 1. Continue with Zosyn. 2. Advance to a low-fiber diet. 3. Repeat labs in the morning and hopefully discharge home in 1 to 2 days. Thank you for this consultation. MMODL / IJN: [id number] /
--- NOTE | 2019-08-09 14:00 | P.DS ---
Providers Date of admission: 08/05/19 14:27 Expected date of discharge: 08/09/19 Attending physician: Edvin Payan Consults: 08/05/19 18:12 Consult Physician Routine Consulting Provider: Cindy Vee Consult Reason/Comments: Diverticulitis/abdominal pain Do you want consulting provider notified?: Yes Primary care physician: Angie Dickerson Hospital Course: Final diagnosis left lower quadrant abdominal pain secondary acute sigmoid diverticulitis. Ileus with possible early small bowel obstruction. Acute delirium likely due to infection. Severe aortic stenosis with a recent history of cardiac cath/BERNARDA and is supposed to follow up with [facility] manager in [place] for TAVR. Pt. follows with . hypertension history of DVT/PE Hypothyroidism Hard of hearing Osteoarthritis of multiple joints history of pacemaker placement. Obesity with BMI 32.0 DVT prophylaxis Discharge disposition Patient is being discharged in a stable condition with guarded prognosis to home. Patient will follow-up with Dr. Dickerson upon discharge. Patient will also be following up with her community arts centre manager in [place] for TAVR. Patient will continue with a short course of oral antibiotics in the form of Flagyl 500 mg 3 times a day for the next 3 days as well as Levaquin 500 milligrams daily for the next 3 days. Total time taken is 35 minutes. History of present illness This is an 88-year-old female who was recently admitted with history of diverticulosis and history of diverticulitis and was being closely monitored. GI was following. Patient underwent CT showing mild acute diverticulitis of the sigmoid colon and multiple loops of small bowel being dilated with possible ileus versus early bowel obstruction. Patient was treated with antibiotics and will be transitioned oral antibiotics in the form of Flagyl 500 mg 3 times daily along with Levaquin 500 milligrams daily for the next 3 days. Patient to continue with home medications of blood pressures and to also keep a diary of blood pressure readings for primary care follow-up. Currently no reports of chest pain, shortness of breath, or palpitations. Patient is afebrile. No reports of nausea or vomiting and patient is tolerating diet. Guarded prognosis. On exam vital signs are stable. Temp is 98.2 F, pulse is 60, respirations are 17, blood pressure is 121/70, oxygen saturation is 97 % on room air. Cardio S1, S2 are muffled. Respiratory shows diminished breath sounds at the bases with no wheezing or rhonchi noted. Abdomen is soft and nontender. Nervous system shows no focal deficits. Please refer to medication reconciliation sheet for a list of medications. Patient Condition at Discharge: Stable Plan - Discharge Summary New Discharge Prescriptions: New Loratadine [Claritin] 10 mg PO DAILY 30 Days #30 tab metroNIDAZOLE [Flagyl] 500 mg PO TID 3 Days #9 tab Levofloxacin [Levaquin] 500 mg PO DAILY 3 Days #3 tab Continue Simvastatin [Zocor] 20 mg PO HS Losartan [Cozaar] 50 mg PO DAILY Levothyroxine Sodium [Synthroid] 88 mcg PO HS Atenolol [Tenormin] 50 mg PO DAILY cloNIDine HCL [Catapres] 0.1 mg PO HS Dicyclomine [Bentyl] 20 mg PO TID PRN PRN Reason: STOMACH PAIN Docusate [Colace] 100 mg PO DAILY PRN #30 cap PRN Reason: Constipation Aspirin EC [Ecotrin Low Dose] 81 mg PO DAILY #30 tablet. Glycerin Adult Suppository 1 supp RECTAL ONCE PRN PRN Reason: Constipation Multivitamins, Thera [Multivitamin (formulary)] 1 tab PO DAILY Cholecalciferol (Vitamin D3) [Vitamin D3] 2,000 unit PO DAILY Warfarin [Coumadin] 5 mg PO WE Ranitidine HCl 150 mg PO BID Atenolol 25 mg PO HS Acetaminophen [Tylenol Extra Strength] 500 - 1,000 mg PO DAILY PRN PRN Reason: Pain Warfarin [Coumadin] 2.5 mg PO [facility] Discharge Medication List Atenolol [Tenormin] 50 mg PO DAILY 08/05/15 [History] Levothyroxine Sodium [Synthroid] 88 mcg PO HS 08/05/15 [History] Losartan [Cozaar] 50 mg PO DAILY 08/05/15 [History] Simvastatin [Zocor] 20 mg PO HS 08/05/15 [History] cloNIDine HCL [Catapres] 0.1 mg PO HS 08/05/15 [History] Dicyclomine [Bentyl] 20 mg PO TID PRN 05/30/17 [History] Docusate [Colace] 100 mg PO DAILY PRN #30 cap 05/31/17 [Rx] Aspirin EC [Ecotrin Low Dose] 81 mg PO DAILY #30 tablet. 06/01/17 [Rx] Cholecalciferol (Vitamin D3) [Vitamin D3] 2,000 unit PO DAILY 11/08/17 [History] Glycerin Adult Suppository 1 supp RECTAL ONCE PRN 11/08/17 [History] Multivitamins, Thera [Multivitamin (formulary)] 1 tab PO DAILY 11/08/17 [History] Warfarin [Coumadin] 5 mg PO WE 11/08/17 [History] Acetaminophen [Tylenol Extra Strength] 500 - 1,000 mg PO DAILY PRN 07/28/19 [History] Atenolol 25 mg PO HS 07/28/19 [History] Ranitidine HCl 150 mg PO BID 07/28/19 [History] Warfarin [Coumadin] 2.5 mg PO SUMOTUTHFRSA 08/05/19 [History] Levofloxacin [Levaquin] 500 mg PO DAILY 3 Days #3 tab 08/09/19 [Rx] Loratadine [Claritin] 10 mg PO DAILY 30 Days #30 tab 08/09/19 [Rx] metroNIDAZOLE [Flagyl] 500 mg PO TID 3 Days #9 tab 08/09/19 [Rx] Follow up Appointment(s)/Referral(s): Angie Dickerson DO [Primary Care Provider] - 1-2 days Ambulatory/Diagnostic Orders: Basic Metabolic Panel [LAB.AMB] Time Frame: 2 Days, Location: None Selected Activity/Diet/Wound Care/Special Instructions: Activity Limited until follow-up Continue to advance diet slowly as tolerated Continue with antibiotics until finished Continue to monitor blood pressure and keep a diary of the readings for primary care follow-up Follow-up with primary care provider upon discharge Repeat labs in 2-3 days
[2019-08-09] MEDS ORDERED: WARFARIN 5 MG TAB PO SCH (17:21)
[2019-08-09] MEDS ORDERED: WARFARIN 2.5 MG TAB PO ONE (18:00)
== END 2019-08-09 16:18 | disposition home or self-care (01) | DRG 392 ==
LOC: EC 12:57 → 5NMEDONC 14:27
PROVIDERS: ADMIT Internal Medicine; ATTEND Internal Medicine
DX: K57.32 Diverticulitis of large intestine without perforation or abscess without bleeding (principal); E87.1 Hypo-osmolality and hyponatremia; K56.7 Ileus, unspecified; F05 Delirium due to known physiological condition; I48.20 Chronic atrial fibrillation, unspecified; E78.5 Hyperlipidemia, unspecified; I35.0 Nonrheumatic aortic (valve) stenosis; I10 Essential (primary) hypertension; M15.9 Polyosteoarthritis, unspecified; E66.9 Obesity, unspecified; E86.1 Hypovolemia; H91.90 Unspecified hearing loss, unspecified ear; K44.9 Diaphragmatic hernia without obstruction or gangrene; N28.1 Cyst of kidney, acquired; E03.9 Hypothyroidism, unspecified; Z79.82 Long term (current) use of aspirin; Z79.01 Long term (current) use of anticoagulants; Z79.890 Hormone replacement therapy; Z79.899 Other long term (current) drug therapy; Z91.011 Allergy to milk products; Z91.010 Allergy to peanuts; Z88.2 Allergy status to sulfonamides; Z91.018 Allergy to other foods; Z91.09 Other allergy status, other than to drugs and biological substances; Z86.718 Personal history of other venous thrombosis and embolism; Z86.711 Personal history of pulmonary embolism; Z87.11 Personal history of peptic ulcer disease; Z95.0 Presence of cardiac pacemaker; Z90.710 Acquired absence of both cervix and uterus; Z90.49 Acquired absence of other specified parts of digestive tract; Z90.89 Acquired absence of other organs; Z98.41 Cataract extraction status, right eye; Z80.9 Family history of malignant neoplasm, unspecified; Z68.32 Body mass index [BMI] 32.0-32.9, adult; Z98.890 Other specified postprocedural states
CPT/HCPCS: 36415; 74177; 80048; 80053; 81001; 82150; 82570; 83690; 83930; 83935; 84156; 84300; 85025; 85610; 87040; 93005; 96365; 99285

== ENCOUNTER 2019-08-16 16:05 | Emergency (ER) | payer MEDICARE, OTHER ==
[2019-08-16 16:12] VITALS: RESP 18
--- NOTE | 2019-08-16 16:20 | ED ---
Abdominal Pain HPI - General Chief Complaint: Abdominal Pain Stated Complaint: diverticulitis Time Seen by Provider: 08/16/19 16:12 Source: patient Mode of arrival: ambulatory Limitations: no limitations - History of Present Illness Initial Comments: Patient is an 88-year-old female history of aortic stenosis, diverticulosis and diverticulitis presenting to the emergency department with a chief complaint of abdominal pain. Patient is a poor historian because she is hard of hearing. Daughter is present. Daughter states patient was discharged from the hospital less than a week ago after she had a mild bout with diverticulitis. Daughter states the patient is currently still on oral antibiotics. Daughter states the patient developed left lower quadrant abdominal pain this morning. Patient attempted to eat in hopes of relieving the pain, however it exacerbated the pain. Patient states the pain is about 8-9. Daughter states the patient had developed diarrhea ever she was released from the hospital. Patient is currently taking Colace in order to prevent any obstruction. Patient denies any fevers chills. Patient denies any nausea or vomiting. Denies chest pain shortness of breath occurring. Mother states the patient does have chest pain or shortness of breath at baseline due to aortic stenosis and she is scheduled for TAVR at [facility]. Patient denies any urinary or vaginal symptoms. - Related Data Home Medications Medication Instructions Recorded Confirmed Atenolol [Tenormin] 50 mg PO DAILY 08/05/15 08/05/19 Levothyroxine Sodium [Synthroid] 88 mcg PO HS 08/05/15 08/05/19 Losartan [Cozaar] 50 mg PO DAILY 08/05/15 08/05/19 Simvastatin [Zocor] 20 mg PO HS 08/05/15 08/05/19 cloNIDine HCL [Catapres] 0.1 mg PO HS 08/05/15 08/05/19 Dicyclomine [Bentyl] 20 mg PO TID PRN 05/30/17 08/05/19 Cholecalciferol (Vitamin D3) 2,000 unit PO DAILY 11/08/17 08/05/19 [Vitamin D3] Glycerin Adult Suppository 1 supp RECTAL ONCE PRN 11/08/17 08/05/19 Multivitamins, Thera [Multivitamin 1 tab PO DAILY 11/08/17 08/05/19 (formulary)] Warfarin [Coumadin] 5 mg PO WE 11/08/17 08/05/19 Acetaminophen [Tylenol Extra 500 - 1,000 mg PO DAILY PRN 07/28/19 08/05/19 Strength] Atenolol 25 mg PO HS 07/28/19 08/05/19 Ranitidine HCl 150 mg PO BID 07/28/19 08/05/19 Warfarin [Coumadin] 2.5 mg PO SUMOTUTHFRSA 08/05/19 08/05/19 Previous Rx's Medication Instructions Recorded Docusate [Colace] 100 mg PO DAILY PRN #30 cap 05/31/17 Aspirin EC [Ecotrin Low Dose] 81 mg PO DAILY #30 tablet. 06/01/17 Levofloxacin [Levaquin] 500 mg PO DAILY 3 Days #3 tab 08/09/19 Loratadine [Claritin] 10 mg PO DAILY 30 Days #30 tab 08/09/19 metroNIDAZOLE [Flagyl] 500 mg PO TID 3 Days #9 tab 08/09/19 Dicyclomine [Bentyl] 20 mg PO BID #30 tablet 08/16/19 Allergies Allergy/AdvReac Type Severity Reaction Status Date / Time corn Allergy Unknown Cough Verified 08/16/19 16:12 milk Allergy Unknown Cough Verified 08/16/19 16:12 peanut Allergy Unknown Cough Verified 08/16/19 16:12 soybean Allergy Unknown Cough Verified 08/16/19 16:12 Sulfa (Sulfonamide Allergy Unknown Anaphylaxis Verified 08/16/19 16:12 Antibiotics) tomato Allergy Unknown Cough Verified 08/16/19 16:12 wheat Allergy Unknown Cough Verified 08/16/19 16:12 dextrose Allergy Cough Verified 08/16/19 16:12 Review of Systems ROS Statement: Those systems with pertinent positive or pertinent negative responses have been documented in the HPI. ROS Other: All systems not noted in ROS Statement are negative. Past Medical History Past Medical History: Deep Vein Thrombosis (DVT), Hypertension, Osteoarthritis (OA), Pulmonary Embolus (PE), Thyroid Disorder Additional Past Medical History / Comment(s): "PRE-DIABETIC", PACEMAKER, diverticulitis History of Any Multi-Drug Resistant Organisms: None Reported Past Surgical History: Appendectomy, Cholecystectomy, Hysterectomy, Pacemaker, Tonsillectomy Additional Past Surgical History / Comment(s): rt eye cataract Past Anesthesia/Blood Transfusion Reactions: Motion Sickness Type of Cardiac Device: Permanent Pacemaker Device Placement Date:: ?2003 Past Psychological History: No Psychological Hx Reported Smoking Status: Never smoker Past Alcohol Use History: None Reported Past Drug Use History: None Reported - Past Family History Sister(s) Family Medical History: Cancer Mother Family Medical History: Cancer General Exam Limitations: no limitations General appearance: alert, in no apparent distress Head exam: Present: atraumatic, normocephalic, normal inspection Eye exam: Present: normal appearance, PERRL, EOMI Pupils: Present: normal accommodation ENT exam: Present: normal exam, normal oropharynx, mucous membranes moist, TM's normal bilaterally, normal external ear exam Neck exam: Present: normal inspection, full ROM. Absent: lymphadenopathy Respiratory exam: Present: normal lung sounds bilaterally. Absent: respiratory distress, wheezes, rales, accessory muscle use Cardiovascular Exam: Present: regular rate, normal rhythm, systolic murmur GI/Abdominal exam: Present: soft, tenderness (Left lower quadrant ), normal bowel sounds. Absent: distended, guarding, rebound, rigid Extremities exam: Present: normal inspection, full ROM, normal capillary refill Back exam: Present: normal inspection, full ROM, CVA tenderness (L) (Mild) Neurological exam: Present: alert, oriented X3 Psychiatric exam: Present: normal affect, normal mood Skin exam: Present: warm, dry, intact, normal color Course Vital Signs 08/16/19 08/16/19 08/16/19 16:07 17:49 20:19 Temperature 97.5 F L 97.2 F L Pulse Rate 59 L 74 70 Respiratory 18 18 18 Rate Blood Pressure 181/97 174/84 213/87 O2 Sat by Pulse 97 97 96 Oximetry Medical Decision Making - Medical Decision Making Patient is an 88-year-old female with history of diverticulosis and diverticular is presenting to the emergency department with a chief complaint of abdominal pain. On exam patient does appear to have left lower quadrant tenderness with mild suprapubic tenderness as well. Patient was given fluids, Bentyl and antiemetics. Patient was offered analgesia with Dilaudid, she declined. Lab work is unremarkable. CT of abdomen and pelvis shows no signs of acute diverticulitis. No acute processes detected. It does show improvement of the diverticulitis from most recent CT. Vitals are stable. Patient states her pain is improved. I suspect improvement is due to Bentyl. Patient will the prescribed a course of Bentyl. Return parameters thoroughly discussed with her daughter who is understanding and agreeable. Dr. Roa also examined the patient and is in agreement with the treatment plan. Case discussed with physician. - Lab Data Result diagrams: 08/16/19 17:00 08/16/19 17:00 Lab Results 08/16/19 08/16/19 08/16/19 Range/Units 17:00 17:00 17:00 WBC 6.4 (3.8-10.6) k/uL RBC 4.17 (3.80-5.40) m/uL Hgb 14.0 (11.4-16.0) gm/dL Hct 41.2 (34.0-46.0) % MCV 98.8 (80.0-100.0) fL MCH 33.6 (25.0-35.0) pg MCHC 34.0 (31.0-37.0) g/dL RDW 13.1 (11.5-15.5) % Plt Count 207 (150-450) k/uL Neutrophils % 61 % Lymphocytes % 25 % Monocytes % 7 % Eosinophils % 3 % Basophils % 1 % Neutrophils # 3.9 (1.3-7.7) k/uL Lymphocytes # 1.6 (1.0-4.8) k/uL Monocytes # 0.5 (0-1.0) k/uL Eosinophils # 0.2 (0-0.7) k/uL Basophils # 0.0 (0-0.2) k/uL PT (9.0-12.0) sec INR (<1.2) APTT (22.0-30.0) sec Sodium 133 L (137-145) mmol/L Potassium 4.5 (3.5-5.1) mmol/L Chloride 98 (98-107) mmol/L Carbon Dioxide 27 (22-30) mmol/L Anion Gap 8 mmol/L BUN 13 (7-17) mg/dL Creatinine 0.71 (0.52-1.04) mg/dL Est GFR (CKD-EPI)AfAm 89 (>60 ml/min/1.73 sqM) Est GFR (CKD-EPI)NonAf 77 (>60 ml/min/1.73 sqM) Glucose 157 H (74-99) mg/dL Plasma Lactic Acid Jignesh 1.6 (0.7-2.0) mmol/L Calcium 9.7 (8.4-10.2) mg/dL Total Bilirubin 1.7 H (0.2-1.3) mg/dL AST 61 H (14-36) U/L ALT 31 (4-34) U/L Alkaline Phosphatase 48 (38-126) U/L Total Protein 7.8 (6.3-8.2) g/dL Albumin 4.5 (3.5-5.0) g/dL Amylase 50 (30-110) U/L Lipase 51 (23-300) U/L Urine Color Urine Appearance (Clear) Urine pH (5.0-8.0) Ur Specific [place] (1.001-1.035) Urine Protein (Negative) Urine Glucose (UA) (Negative) Urine Ketones (Negative) Urine Blood (Negative) Urine Nitrite (Negative) Urine Bilirubin (Negative) Urine Urobilinogen (<2.0) mg/dL Ur Leukocyte Esterase (Negative) Urine RBC (0-5) /hpf Urine WBC (0-5) /hpf Ur Squamous Epith Cells (0-4) /hpf Urine Mucus (None) /hpf 08/16/19 08/16/19 Range/Units 17:00 19:44 WBC (3.8-10.6) k/uL RBC (3.80-5.40) m/uL Hgb (11.4-16.0) gm/dL Hct (34.0-46.0) % MCV (80.0-100.0) fL MCH (25.0-35.0) pg MCHC (31.0-37.0) g/dL RDW (11.5-15.5) % Plt Count (150-450) k/uL Neutrophils % % Lymphocytes % % Monocytes % % Eosinophils % % Basophils % % Neutrophils # (1.3-7.7) k/uL Lymphocytes # (1.0-4.8) k/uL Monocytes # (0-1.0) k/uL Eosinophils # (0-0.7) k/uL Basophils # (0-0.2) k/uL PT 25.1 H (9.0-12.0) sec INR 2.6 H (<1.2) APTT 29.2 (22.0-30.0) sec Sodium (137-145) mmol/L Potassium (3.5-5.1) mmol/L Chloride (98-107) mmol/L Carbon Dioxide (22-30) mmol/L Anion Gap mmol/L BUN (7-17) mg/dL Creatinine (0.52-1.04) mg/dL Est GFR (CKD-EPI)AfAm (>60 ml/min/1.73 sqM) Est GFR (CKD-EPI)NonAf (>60 ml/min/1.73 sqM) Glucose (74-99) mg/dL Plasma Lactic Acid Jignesh (0.7-2.0) mmol/L Calcium (8.4-10.2) mg/dL Total Bilirubin (0.2-1.3) mg/dL AST (14-36) U/L ALT (4-34) U/L Alkaline Phosphatase (38-126) U/L Total Protein (6.3-8.2) g/dL Albumin (3.5-5.0) g/dL Amylase (30-110) U/L Lipase (23-300) U/L Urine Color Light Yellow Urine Appearance Clear (Clear) Urine pH 6.5 (5.0-8.0) Ur Specific [place] 1.006 (1.001-1.035) Urine Protein Negative (Negative) Urine Glucose (UA) Negative (Negative) Urine Ketones Negative (Negative) Urine Blood Negative (Negative) Urine Nitrite Negative (Negative) Urine Bilirubin Negative (Negative) Urine Urobilinogen <2.0 (<2.0) mg/dL Ur Leukocyte Esterase Trace H (Negative) Urine RBC 1 (0-5) /hpf Urine WBC 2 (0-5) /hpf Ur Squamous Epith Cells <1 (0-4) /hpf Urine Mucus Rare H (None) /hpf - EKG Data EKG Comments: Sinus rhythm Ventricular rate 68. [place] 182, QRS 90, QTC 435. Disposition Clinical Impression: Abdominal pain, Abdominal cramping Disposition: HOME SELF-CARE Condition: Stable Instructions (If sedation given, give patient instructions): Abdominal Pain (ED) Additional Instructions: Take prescribed medication as directed. Stay well-hydrated. Return to emergency department if symptoms worsen. Prescriptions: Dicyclomine [Bentyl] 20 mg PO BID #30 tablet Is patient prescribed a controlled substance at d/c from ED?: No Referrals: RemiAngie smiley DO [Primary Care Provider] - 1-2 days Time of Disposition: 19:35
[2019-08-16] MEDS ORDERED: ONDANSETRON 4 MG/2 ML VIAL IVP STA (16:33)
[2019-08-16] MEDS ORDERED: HYDROmorphone 0.5 MG/0.5 ML SYRINGE IVP STA (16:33)
[2019-08-16] MEDS ORDERED: SODIUM CHLORIDE 0.9% 500 ML 500 ML IV STA (16:33)
[2019-08-16] MEDS ORDERED: DICYCLOMINE 10 MG/ML 2 ML AMP IM STA (16:33)
[2019-08-16 17:19] LABS: Basophils % (A) 1 %; Eosinophils # (A) 0.2 k/uL (0-0.7); Eosinophils % (A) 3 %; HCT 41.2 % (34.0-46.0); Lymphocytes # (A) 1.6 k/uL (1.0-4.8); Lymphocytes % (A) 25 %; MCH 33.6 pg (25.0-35.0); MCV 98.8 fL (80.0-100.0); Mean Platelet Volume 8.7; Monocytes # (A) 0.5 k/uL (0-1.0); Monocytes % (A) 7 %; Neutrophils # (A) 3.9 k/uL (1.3-7.7); Neutrophils % (A) 61 %; Platelet Count 207 k/uL (150-450); RBC 4.17 m/uL (3.80-5.40); RDW 13.1 % (11.5-15.5); WBC 6.4 k/uL (3.8-10.6)
[2019-08-16 17:25] LABS: Albumin 4.5 g/dL (3.5-5.0); Calcium 9.7 mg/dL (8.4-10.2); Potassium 4.5 mmol/L (3.5-5.1); Total Bilirubin 1.7 mg/dL (0.2-1.3); Total Protein 7.8 g/dL (6.3-8.2)
[2019-08-16 17:34] LABS: Appearance,Urine Clear (Clear); Bilirubin,Urine Negative (Negative); Blood,Urine Negative (Negative); Color,Urine Light Yellow; Glucose,Urine (UA) Negative (Negative); Ketones,Urine Negative (Negative); Leukocyte Esterase,Urine Trace (Negative); Mucus,Urine Rare /hpf; Nitrite,Urine Negative (Negative); PH, Urine 6.5 (5.0-8.0); Protein,Urine Negative (Negative); RBC,Urine 1 /hpf (0-5); Specific Gravity,Urine 1.006 (1.001-1.035); Squamous Epithelial Cell,Urine <1 /hpf (0-4); Urobilinogen,Urine <2.0 mg/dL (<2.0); WBC,Urine 2 /hpf (0-5)
--- NOTE | 2019-08-16 19:17 | CT ---
EXAMINATION TYPE: CT abdomen pelvis w con DATE OF EXAM: 08/16/2019 COMPARISON: 08/05/2019 HISTORY: LLQ pain CT DLP: 848.4 mGycm CONTRAST: CT scan of the abdomen and pelvis is performed without Oral Contrast and with IV Contrast, patient in jected with 100 mL of Isovue 300. FINDINGS: LUNG BASES-: Calcified benign granuloma seen at the right lung base in addition to bibasilar dependen t subsegmental atelectasis and vascular prominence. Partially calcified probable granuloma of the rig ht middle lobe. Extensive coronary calcifications partially visualized. Small hiatal hernia. LIVER/GB: cholecystectomy changes. Mild hepatic steatosis. No space occupying hepatic lesion. Bili juany tree is of normal caliber. PANCREAS: No inflammation. No distinct mass. SPLEEN: No splenic enlargement. No lesion seen. Granuloma. ADRENALS: No nodule. No thickening. KIDNEYS/BLADDER: No hydronephrosis. No nephrolithiasis. Stable large left renal cyst. Urinary bladd er grossly unremarkable. BOWEL: Normalization of small bowel noted. No evidence for ileus or obstruction. Previously noted mil d features of sigmoid diverticulitis have resolved. No evidence for active inflammatory process. No f ree air or abscess. Moderate fecal stasis. GENITAL ORGANS: No gross abnormality. LYMPH NODES: No greater than 1cm abdominal or pelvic lymph nodes are appreciated. AORTA: No significant abnormality. OSSEOUS STRUCTURES: No significant abnormality is seen. OTHER: Fat-containing small ventral hernia measures 2.2 cm. IMPRESSION: 1. Normalization of small bowel noted. No evidence for ileus or obstruction. Previously noted mild fe atures of sigmoid diverticulitis have resolved. No evidence for active inflammatory process. No free air or abscess. Moderate fecal stasis.
[2019-08-16 20:20] VITALS: BP 213/87; PULSE 70; TEMP 97.2
[2019-08-16 20:29] LABS: INR 2.6 (<1.2); Partial Thromboplastin Time 29.2 sec (22.0-30.0); Prothrombin Time 25.1 sec (9.0-12.0)
== END 2019-08-16 20:39 | disposition home or self-care (01) ==
LOC: EC 16:05
DX: R10.32 Left lower quadrant pain (principal); R10.814 Left lower quadrant abdominal tenderness; I10 Essential (primary) hypertension; E07.9 Disorder of thyroid, unspecified; Z79.01 Long term (current) use of anticoagulants; Z79.890 Hormone replacement therapy; Z79.899 Other long term (current) drug therapy; Z91.010 Allergy to peanuts; Z91.018 Allergy to other foods; Z91.011 Allergy to milk products; Z88.2 Allergy status to sulfonamides; Z88.8 Allergy status to other drugs, medicaments and biological substances; Z95.0 Presence of cardiac pacemaker; Z90.49 Acquired absence of other specified parts of digestive tract; Z90.89 Acquired absence of other organs; Z90.710 Acquired absence of both cervix and uterus
CPT/HCPCS: 36415; 93005; 80053; 82150; 83605; 83690; 85025; 85610; 85730; 81001; 87040; 74177; 99284; 96374; 96361 ×2; J2405; Q9967

== ENCOUNTER → 2020-02-09 | Outpatient (CLI) | payer MEDICARE, OTHER ==
--- NOTE | 2020-02-09 15:23 | US ---
EXAMINATION TYPE: US kidneys/renal and bladder DATE OF EXAM: 02/09/2020 COMPARISON: CT 08/16/19 CLINICAL HISTORY: R94.4 ABN KIDNEY FUCTION RESULTS. EXAM MEASUREMENTS: Right Kidney: 10.4 x 4.3 x 3.9 cm Left Kidney: 11.7 x 4.8 x 4.3 cm Right Kidney: No hydronephrosis or masses seen Left Kidney: No hydronephrosis or masses seen, lower pole cyst as seen on CT = 7.8 x 6.9 x 6.6 cm Bladder: Not overly distended. No obvious pathology Bilateral Jets seen: Yes Normal Post Void Residual: Not calculated d/t poorly distended size pre void. IMPRESSION: 1. Large simple appearing cyst left inferior pole kidney
== END | disposition home or self-care (01) ==
LOC: RADUSWWP 14:42
PROVIDERS: ATTEND Family Medicine
DX: N28.1 Cyst of kidney, acquired (principal)
CPT/HCPCS: 76770